=== PATIENT | male | born 1975 | race American Indian/Alaskan Native ===

== ENCOUNTER 2019-05-22 08:25 | Inpatient (IN) | payer OTHER ==
[2019-05-22] MEDS ORDERED: SODIUM CHLORIDE 0.9% 1000 ML IV SOLN IV ONE (08:44)
[2019-05-22] MEDS ORDERED: SODIUM CHLORIDE 0.9% 1000 ML 1,000 ML ONE ×3 (08:46→13:46)
[2019-05-22] MEDS ORDERED: FAMOTIDINE 20 MG/2 ML INJ IV ONE (08:46)
[2019-05-22] MEDS ORDERED: KETOROLAC 30 MG/1 ML INJ IV ONE (08:46)
[2019-05-22] MEDS ORDERED: ONDANSETRON 4 MG/2 ML INJ IV ONE (08:46)
[2019-05-22] MEDS ORDERED: MORPHINE 4 MG/1 ML INJ IV ONE (08:46)
[2019-05-22 09:13] LABS: Basophils # (Auto) 0.1 K/mm3 (0.0-0.1); Basophils % (Auto) 0.8 % (0.0-1.8); Lymphocytes % (Auto) 5.7 % (13.4-35.0); Mean Corpuscular HGB Conc 30 % (32-34); Mean Corpuscular Volume 106 fl (84-94); Monocytes # (Auto) 1.6 K/mm3 (0.0-0.8); Monocytes % (Auto) 9.6 % (0.0-7.3); Platelet Count 242 K/mm3 (140-440)
--- NOTE | 2019-05-22 09:21 | XRay Report ---
CHEST 1 VIEW INDICATION: cough. Difficulty breathing. COMPARISON: None FINDINGS: Support devices: None. Heart: Within normal limits. Lungs/Pleura: No acute air space or interstitial disease. Additional findings: None. IMPRESSION: Normal chest x-ray Signer Name: Nam Maya Jr, MD Signed: 05/22/2019 9:16 AM Workstation Name: [id number]
[2019-05-22 09:28] LABS: Hematocrit 54.1 % (35.5-45.6); Hemoglobin 15.9 gm/dl (11.8-15.2)
[2019-05-22] MEDS ORDERED: DEXTROSE 50% IN WATER (25GM) 50 ML SYRINGE IV PRN ×2 (09:43→20:41)
[2019-05-22 09:48] LABS: Blood Urea Nitrogen TNR mg/dL (9-20)
[2019-05-22 09:49] LABS: BUN/Creatinine Ratio TNR; Calcium TNR mg/dL (8.4-10.2)
--- NOTE | 2019-05-22 09:49 | Emergency Department Report ---
ED General Adult HPI - General Chief complaint: Hyperglycemia Stated complaint: HOLLY/VOMIT Time Seen by Provider: 05/22/19 08:43 Source: patient Mode of arrival: Wheelchair Limitations: No Limitations - History of Present Illness Initial comments: Patient is a 44-year-old Japanese male who is presenting with difficulty breathing. Patient's states that approximately a week ago they both became ill with upper respiratory infection with a cough that is occasionally productive. Patient's states that she started taking some amoxicillin and has completely improved however the patient has worsened. Patient's states that she has has been trying to give the patient her amoxicillin as she stopped her antibiotics early. Patient's is having cough and congestion as well as nausea and vomiting the last 2-3 days. Patient also is complaining of severe lower back pain as well. Patient's had increased thirst and increased urination. Patient denies any diarrhea so throat or neck stiffness. states that starting yesterday evening he started having heavy rapid breathing and she believes that his mentation has changed. She states he will follow commands but seems to sometimes not be paying attention is talking "out of his head". Severity scale (0 -10): 10 - Related Data Allergies Allergy/AdvReac Type Severity Reaction Status Date / Time No Known Allergies Allergy Unverified 05/22/19 08:28 ED Review of Systems ROS: Stated complaint: HOLLY/VOMIT Other details as noted in HPI Comment: All other systems reviewed and negative ED Past Medical Hx - Past Medical History Previous Medical History?: Yes Hx Asthma: Yes - Surgical History Past Surgical History?: No - Social History Smoking Status: Current Every Day Smoker Substance Use Type: Alcohol ED Physical Exam - General Limitations: No Limitations General appearance: alert, anxious, in distress, other (breath smells ofketones) - Head Head exam: Present: atraumatic, normocephalic - Eye Eye exam: Present: normal appearance, PERRL, EOMI - ENT ENT exam: Present: mucous membranes moist - Neck Neck exam: Present: normal inspection - Respiratory Respiratory exam: Present: normal lung sounds bilaterally, respiratory distress, other (tachypnea) - Cardiovascular Cardiovascular Exam: Present: normal rhythm, tachycardia. Absent: systolic murmur, diastolic murmur, rubs, gallop - GI/Abdominal GI/Abdominal exam: Present: soft, normal bowel sounds. Absent: distended, tenderness, guarding, rebound - Rectal Rectal exam: Present: deferred - Extremities Exam Extremities exam: Present: normal inspection - Back Exam Back exam: Present: normal inspection, paraspinal tenderness (lumbar) - Neurological Exam Neurological exam: Present: alert, oriented X3 - Psychiatric Psychiatric exam: Present: normal affect, normal mood - Skin Skin exam: Present: warm, dry, intact, normal color. Absent: rash ED Course Vital Signs 05/22/19 05/22/19 05/22/19 08:31 08:56 09:00 Temperature 97.4 F L Pulse Rate 137 H 129 H 132 H Respiratory 26 H 37 H 32 H Rate Blood Pressure 168/107 172/103 O2 Sat by Pulse 98 Oximetry 05/22/19 05/22/19 05/22/19 09:16 09:30 09:45 Temperature Pulse Rate 120 H 120 H 118 H Respiratory 25 H 26 H 24 Rate Blood Pressure 172/103 151/86 145/102 O2 Sat by Pulse 100 100 100 Oximetry - Reevaluation(s) Reevaluation #1: 05/22/19 11:19 Patient's IV access was lost. Patient is only received 1 L of IV fluids. An 18-gauge external jugular IV was placed in the left EJ. I will also able using ultrasound guidance to place a long 18-gauge in the biceps vein. Patient's mentation is improving at this time. ED Medical Decision Making - Lab Data Result diagrams: 05/22/19 08:55 05/22/19 10:00 Lab Results 05/22/19 05/22/19 05/22/19 Range/Units 08:36 08:55 08:55 WBC 16.9 H (4.5-11.0) K/mm3 RBC 5.10 H (3.65-5.03) M/mm3 Hgb 15.9 H (11.8-15.2) gm/dl Hct 54.1 H (35.5-45.6) % MCV 106 H (84-94) fl MCH 31 (28-32) pg MCHC 30 L (32-34) % RDW 16.0 H (13.2-15.2) % Plt Count 242 (140-440) K/mm3 Lymph % (Auto) 5.7 L (13.4-35.0) % [place] % (Auto) 9.6 H (0.0-7.3) % Eos % (Auto) 0.0 (0.0-4.3) % Baso % (Auto) 0.8 (0.0-1.8) % Lymph # 1.0 L (1.2-5.4) K/mm3 [place] # 1.6 H (0.0-0.8) K/mm3 Eos # 0.0 (0.0-0.4) K/mm3 Baso # 0.1 (0.0-0.1) K/mm3 Seg Neutrophils % 83.9 H (40.0-70.0) % Seg Neutrophils # 14.2 H (1.8-7.7) K/mm3 VBG pH (7.320-7.420) Sodium TNR Potassium TNR Chloride TNR Carbon Dioxide TNR Anion Gap TNR BUN TNR Creatinine TNR Estimated GFR TNR BUN/Creatinine Ratio TNR Glucose TNR POC Glucose > 500 H (70-105) Lactic Acid (0.7-2.0) mmol/L Calcium TNR Phosphorus (2.5-4.5) mg/dL Magnesium (1.7-2.3) mg/dL Total Bilirubin TNR AST TNR ALT TNR Alkaline Phosphatase TNR Total Protein TNR Albumin TNR Albumin/Globulin Ratio TNR Urine Color (Yellow) Urine Turbidity (Clear) Urine pH (5.0-7.0) Ur Specific [place] (1.003-1.030) Urine Protein (Negative) mg/dL Urine Glucose (UA) (Negative) mg/dL Urine Ketones (Negative) mg/dL Urine Blood (Negative) Urine Nitrite (Negative) Urine Bilirubin (Negative) Urine Urobilinogen (<2.0) mg/dL Ur Leukocyte Esterase (Negative) Urine WBC (Auto) (0.0-6.0) /HPF Urine RBC (Auto) (0.0-6.0) /HPF U Epithel Cells (Auto) (0-13.0) /HPF Urine Mucus /HPF 05/22/19 05/22/19 05/22/19 Range/Units 09:23 09:23 10:00 WBC (4.5-11.0) K/mm3 RBC (3.65-5.03) M/mm3 Hgb (11.8-15.2) gm/dl Hct (35.5-45.6) % MCV (84-94) fl MCH (28-32) pg MCHC (32-34) % RDW (13.2-15.2) % Plt Count (140-440) K/mm3 Lymph % (Auto) (13.4-35.0) % [place] % (Auto) (0.0-7.3) % Eos % (Auto) (0.0-4.3) % Baso % (Auto) (0.0-1.8) % Lymph # (1.2-5.4) K/mm3 [place] # (0.0-0.8) K/mm3 Eos # (0.0-0.4) K/mm3 Baso # (0.0-0.1) K/mm3 Seg Neutrophils % (40.0-70.0) % Seg Neutrophils # (1.8-7.7) K/mm3 VBG pH 6.909 L* (7.320-7.420) Sodium Potassium Chloride Carbon Dioxide Anion Gap BUN Creatinine Estimated GFR BUN/Creatinine Ratio Glucose POC Glucose (70-105) Lactic Acid 5.70 H* (0.7-2.0) mmol/L Calcium Phosphorus 8.40 H (2.5-4.5) mg/dL Magnesium 2.90 H (1.7-2.3) mg/dL Total Bilirubin AST ALT Alkaline Phosphatase Total Protein Albumin Albumin/Globulin Ratio Urine Color (Yellow) Urine Turbidity (Clear) Urine pH (5.0-7.0) Ur Specific [place] (1.003-1.030) Urine Protein (Negative) mg/dL Urine Glucose (UA) (Negative) mg/dL Urine Ketones (Negative) mg/dL Urine Blood (Negative) Urine Nitrite (Negative) Urine Bilirubin (Negative) Urine Urobilinogen (<2.0) mg/dL Ur Leukocyte Esterase (Negative) Urine WBC (Auto) (0.0-6.0) /HPF Urine RBC (Auto) (0.0-6.0) /HPF U Epithel Cells (Auto) (0-13.0) /HPF Urine Mucus /HPF 05/22/19 05/22/19 Range/Units 10:00 10:07 WBC (4.5-11.0) K/mm3 RBC (3.65-5.03) M/mm3 Hgb (11.8-15.2) gm/dl Hct (35.5-45.6) % MCV (84-94) fl MCH (28-32) pg MCHC (32-34) % RDW (13.2-15.2) % Plt Count (140-440) K/mm3 Lymph % (Auto) (13.4-35.0) % [place] % (Auto) (0.0-7.3) % Eos % (Auto) (0.0-4.3) % Baso % (Auto) (0.0-1.8) % Lymph # (1.2-5.4) K/mm3 [place] # (0.0-0.8) K/mm3 Eos # (0.0-0.4) K/mm3 Baso # (0.0-0.1) K/mm3 Seg Neutrophils % (40.0-70.0) % Seg Neutrophils # (1.8-7.7) K/mm3 VBG pH (7.320-7.420) Sodium 125 L Potassium 5.5 H Chloride 87.5 L Carbon Dioxide 4 L* Anion Gap 40 BUN 27 H Creatinine 1.7 H Estimated GFR 54 BUN/Creatinine Ratio 16 Glucose > 750 H* POC Glucose (70-105) Lactic Acid (0.7-2.0) mmol/L Calcium 9.1 Phosphorus (2.5-4.5) mg/dL Magnesium (1.7-2.3) mg/dL Total Bilirubin AST ALT Alkaline Phosphatase Total Protein Albumin Albumin/Globulin Ratio Urine Color Yellow (Yellow) Urine Turbidity Clear (Clear) Urine pH 5.0 (5.0-7.0) Ur Specific [place] 1.010 (1.003-1.030) Urine Protein 30 mg/dl (Negative) mg/dL Urine Glucose (UA) 500 (Negative) mg/dL Urine Ketones 25 (Negative) mg/dL Urine Blood Moderate A (Negative) Urine Nitrite Negative (Negative) Urine Bilirubin Negative (Negative) Urine Urobilinogen < 2.0 (<2.0) mg/dL Ur Leukocyte Esterase Negative (Negative) Urine WBC (Auto) < 1.0 (0.0-6.0) /HPF Urine RBC (Auto) 2.0 (0.0-6.0) /HPF U Epithel Cells (Auto) < 1.0 (0-13.0) /HPF Urine Mucus Few /HPF - Radiology Data [facility] [address] [place] [address] XRay Report Signed Patient: ABIGAIL RODRIGUEZ MR#: [id number] [birth year] : 1975 Acct:[id number] Age/Sex: 44 / M ADM Date: 05/22/19 Loc: ED Attending Dr: Ordering Physician: SAMPSON ENRIQUE MD Date of Service: 05/22/19 Procedure(s): XR chest 1V ap Accession Number(s): [id number] cc: SAMPSON ENRIQUE MD Fluoro Time In Minutes: CHEST 1 VIEW INDICATION: cough. Difficulty breathing. COMPARISON: None FINDINGS: Support devices: None. Heart: Within normal limits. Lungs/Pleura: No acute air space or interstitial disease. Additional findings: None. IMPRESSION: Normal chest x-ray Signer Name: Nam Rojo Jr, MD Signed: 05/22/2019 9:16 AM Workstation Name: [id number] Transcribed By: TTR Dictated By: NAM ROJO JR, MD Electronically Authenticated By: NAM ROJO JR, MD Signed Date/Time: 05/22/19 0916 - Medical Decision Making Dishes a 44-year-old -Japanese male with no known past medical history who is resenting in DKA. Patient's a cough and cold symptoms for over a week and is been progressively worsening. White brought him in because he's been having nausea vomiting and decreased mentation with rapid breathing. Patient noted to have a glucose that is greater than 750. At the time of admission the patient is glucose is still being diluted. Patient does show severe acidosis as the patient has a significantly elevated anion gap and has a bicarbonate of 4. Venous pH is 6.9. Patient is aggressively hydrated with normal saline. Patient started on insulin drip. Patient to be admitted to the ICU service. Patient's does state his nausea and low back pain are improved after nausea and pain meds. Patient is continued to have rapid breathing; patient's O2 sat is 100% on 2 L. Patient is not shown any signs of hypoxia. Critical Care Time: Yes (75) Critical care attestation.: If time is entered above; I have spent that time in minutes in the direct care of this critically ill patient, excluding procedure time. ED Disposition Clinical Impression: DKA (diabetic ketoacidoses), New onset type 2 diabetes mellitus, Upper respiratory infection Disposition: -09 OP ADMIT IP TO THIS HOSP Is pt being admited?: Yes Does the pt Need Aspirin: No Condition: Stable Instructions: Diabetic Ketoacidosis (ED), Diabetes Mellitus Type 2 in Adults (ED) Referrals: PRIMARY CARE, [Primary Care Provider] - 3-5 Days Time of Disposition: 11:25
[2019-05-22 09:50] LABS: Alanine Aminotransferase TNR units/L (7-56); Albumin TNR g/dL (3.9-5)
[2019-05-22 09:51] LABS: Hemolysis Index TNR
[2019-05-22] MEDS ORDERED: cefTRIAXone/NS 2 GM/100 ML 2 GM/100 ML BAG IV SCH (10:00)
[2019-05-22] MEDS ORDERED: AZITHROMYCIN 500 MG in SODIUM CHLORIDE 0.9% 250ML 250 ML IV SCH (10:00)
[2019-05-22 10:29] LABS: BUN/Creatinine Ratio 16; Blood Urea Nitrogen 27 mg/dL (9-20); Calcium 9.1 mg/dL (8.4-10.2); Hemolysis Index 50
[2019-05-22] MEDS ORDERED: IPRATROPIUM/ALBUTEROL SULFATE 3 ML AMPUL.NEB IH ONE ×3 (10:56→13:49)
[2019-05-22 11:06] LABS: Bilirubin,Urine Negative (Negative); Blood,Urine Moderate (Negative); Color,Urine Yellow (Yellow)
[2019-05-22 11:07] LABS: Urobilinogen,Urine < 2.0 mg/dL (<2.0)
[2019-05-22 11:11] LABS: Mucus,Urine FEW /HPF; WBC,Urine < 1.0 /HPF (0.0-6.0)
[2019-05-22] MEDS: POTASSIUM CHLORIDE 10 MEQ 10 MEQ/100 ML BAG IV SCH ×6 (11:30→21:14)
[2019-05-22] MEDS: INSULIN REGULAR, HUMAN 100 UNITS in SODIUM CHLORIDE 0.9% 99 ML IV SCH (11:32)
[2019-05-22 11:57] LABS: Albumin 3.9 g/dL (3.9-5); BUN/Creatinine Ratio 18; Blood Urea Nitrogen 27 mg/dL (9-20); Calcium 8.3 mg/dL (8.4-10.2); Hemolysis Index 121
[2019-05-22 12:19] LABS: Alanine Aminotransferase 14 units/L (7-56)
--- NOTE | 2019-05-22 12:24 | Cat Scan Report ---
CT CHEST WITHOUT CONTRAST INDICATION / CLINICAL INFORMATION: severe cough, dehydration cxr wnl. TECHNIQUE: Axial CT images were obtained through the chest without contrast. Sagittal and coronal reformatted im ages. All CT scans at this location are performed using CT dose reduction for ALARA by means of autom ated exposure control. COMPARISON: Chest x-ray performed the same day FINDINGS: This exam is slightly limited by patient motion artifact. The thyroid gland, tracheobronchial tree, e sophagus, heart, pericardium, mediastinal vessels, lung cordero and bony thorax are unremarkable. No e vidence for parenchymal lung disease, pleural effusion or pneumothorax. No thoracic mass, adenopathy or inflammation. IMPRESSION: Unremarkable CT chest without contrast. No abnormality is detected. Signer Name: Nam Maya Jr, MD Signed: 05/22/2019 12:19 PM Workstation Name: [id number]
--- NOTE | 2019-05-22 12:26 | Cat Scan Report ---
CT ABDOMEN AND PELVIS WITHOUT CONTRAST HISTORY: Diabetic ketoacidosis. Abdominal and back pain. COMPARISON: None. TECHNIQUE: Axial CT images were obtained through the abdomen and pelvis without IV contrast. Sagittal and coronal reformatted images. All CT scans at this location are performed using CT dose reduction for ALARA by means of automated exposure control. FINDINGS: Comment: Many of the images are limited secondary to patient motion. CT ABDOMEN: Liver: No significant abnormality. Biliary: No significant abnormality. Spleen: No significant abnormality. Unenlarged. Pancreas: No significant abnormality. Adrenals: No significant abnormality. Kidneys: No significant abnormality. Lymphatics: No lymphadenopathy. Vasculature: No significant abnormality. Bowel/Peritoneum: No significant abnormality. No free air. No free fluid. Normal appendix. CT PELVIS: : No significant abnormality. Osseous Structures: No significant abnormality. No evidence for fracture, bone lesion or significant degenerative changes. Additional Findings: None IMPRESSION: Unremarkable noncontrast CT of the abdomen and pelvis. No abnormality is detected. Signer Name: Nam Maya Jr, MD Signed: 05/22/2019 12:21 PM Workstation Name: [id number]
[2019-05-22 13:38] LABS: BUN/Creatinine Ratio 19; Blood Urea Nitrogen 26 mg/dL (9-20); Calcium 8.9 mg/dL (8.4-10.2); Hemolysis Index 10
[2019-05-22] MEDS: SODIUM CHLORIDE 0.9% 1000 ML 1,000 ML IV SCH ×2 (13:56→18:00)
[2019-05-22 15:05] LABS: BUN/Creatinine Ratio 18; Blood Urea Nitrogen 25 mg/dL (9-20); Calcium 8.5 mg/dL (8.4-10.2); Hemolysis Index 15
[2019-05-22 18:53] LABS: BUN/Creatinine Ratio 16; Blood Urea Nitrogen 22 mg/dL (9-20); Calcium 8.5 mg/dL (8.4-10.2); Hemolysis Index 6
--- NOTE | 2019-05-22 20:35 | History and Physical Report ---
History of Present Illness Date of examination: 05/22/19 Date of admission: 05/22/19 11:26 Chief complaint: Nausea and vomiting for one day History of present illness: 44-year-old [place] male who is presenting with difficulty breathing. Patient had URI for one week for which heis getting Amoxicillin.Since 2 days patient has been breathing heavily.Also confused for one day.Increased urination and increased thirst present.Nausea and vomiting for one day.No diarrhea.Multiple episodes of vomiting since yesterday.No fever. Past Medical History Previous Medical History?: Yes Asthma: Yes Not Known Diabetic Surgical History No Social History Smoking Status: Current Every Day Smoker Substance Use Type: Alcohol Family History Htn Medications and Allergies Allergies Allergy/AdvReac Type Severity Reaction Status Date / Time No Known Allergies Allergy Unverified 05/22/19 08:28 Home Medications Medication Instructions Recorded Confirmed Last Taken Type No Known Home Medications [No 05/22/19 05/22/19 Unknown History Reported Home Medications] Active Meds: Active Medications Dextrose (D50w (25gm) Syringe) 0 ml IV ONCE PRN PRN Reason: Hypoglycemia Ceftriaxone Sodium (Rocephin/Ns 2 Gm/100 Ml) 2 gm in 100 mls @ 200 mls/hr IV Q24HR RUTH; Protocol Last Infusion: 05/22/19 10:30 Dose: Infused Documented by: Azithromycin 500 mg/ Sodium (Chloride) 250 mls @ 250 mls/hr IV Q24HR RUTH; Protocol Last Infusion: 05/22/19 11:30 Dose: Infused Documented by: Insulin Human Regular 100 (units/ Sodium Chloride) 100 mls @ 1 mls/hr IV TITR RUTH; Protocol Last Titration: 05/22/19 19:00 Dose: 6 units/hr, 6 mls/hr Documented by: Sodium Chloride (Nacl 0.9% 1000 Ml) 1,000 mls @ 250 mls/hr IV DIRECT RUTH Last Admin: 05/22/19 18:00 Dose: 250 mls/hr Documented by: Potassium Chloride/Dextrose/Sod Cl (D5w/0.45% Nacl/Kcl 20 Meq) 20 meq in 1,000 mls @ 125 mls/hr IV DIRECT RUTH Review of Systems All systems: negative Constitutional: weight loss, daytime sleepiness Ears, nose, mouth and throat: no ear pain, no ear discharge, no tinnitis, no decreased hearing Cardiovascular: shortness of breath, no chest pain, no orthopnea Respiratory: cough, cough with sputum, shortness of breath, dyspnea on exertion, congestion Gastrointestinal: nausea, vomiting, no abdominal pain Genitourinary Male: urinary frequency (Increased), no dysuria, no hematuria, no flank pain, no discharge Rectal: no pain Musculoskeletal: no neck stiffness, no neck pain, no shooting arm pain, no arm numbness/tingling, no low back pain, no shooting leg pain, no leg numbness/tingling, no redness of joints Integumentary: no rash, no pruritis, no redness, no sores, no wounds, no jaundice, no boils, no blisters Neurological: no seizures, no syncope Psychiatric: anxiety, disorientation Endocrine: polyphagia, excessive thirst, polydipsia, polyuria, weight change, high blood sugars Hematologic/Lymphatic: no easy bruising, no easy bleeding Allergic/Immunologic: no urticaria, no allergic rhinitis, no wheezing Exam - Constitutional Vitals: Temp Pulse Resp BP Pulse Ox 97.4 F L 116 H 19 125/87 99 05/22/19 08:31 05/22/19 19:21 05/22/19 19:21 05/22/19 19:21 05/22/19 19:21 General appearance: Present: severe distress, well-nourished - EENT Eyes: Present: PERRL ENT: hearing intact, clear oral mucosa - Neck Neck: Present: supple, normal ROM - Respiratory Respiratory effort: normal Respiratory: bilateral: CTA, rhonchi - Cardiovascular Heart rate: 98 Rhythm: regular Heart Sounds: Present: S1 & S2. Absent: rub, click - Extremities Extremities: no ischemia, pulses intact, pulses symmetrical, No edema Peripheral Pulses: within normal limits - Abdominal General gastrointestinal: Present: soft, non-tender, non-distended, normal bowel sounds Male genitourinary: Present: normal - Rectal Rectal Exam: deferred - Integumentary Integumentary: Present: clear, warm, dry - Musculoskeletal Musculoskeletal: strength equal bilaterally, generalized weakness - Psychiatric Psychiatric: agitated, other (Altered sensoriuum) - Neurologic Neurologic: CNII-XII intact, moves all extremities Results - Labs CBC & Chem 7: 05/22/19 08:55 05/22/19 23:00 Labs: Laboratory Last Values WBC 16.9 K/mm3 (4.5-11.0) H 05/22/19 08:55 RBC 5.10 M/mm3 (3.65-5.03) H 05/22/19 08:55 Hgb 15.9 gm/dl (11.8-15.2) H 05/22/19 08:55 Hct 54.1 % (35.5-45.6) H 05/22/19 08:55 MCV 106 fl (84-94) H 05/22/19 08:55 MCH 31 pg (28-32) 05/22/19 08:55 MCHC 30 % (32-34) L 05/22/19 08:55 RDW 16.0 % (13.2-15.2) H 05/22/19 08:55 Plt Count 242 K/mm3 (140-440) 05/22/19 08:55 Lymph % (Auto) 5.7 % (13.4-35.0) L 05/22/19 08:55 [place] % (Auto) 9.6 % (0.0-7.3) H 05/22/19 08:55 Eos % (Auto) 0.0 % (0.0-4.3) 05/22/19 08:55 Baso % (Auto) 0.8 % (0.0-1.8) 05/22/19 08:55 Lymph # 1.0 K/mm3 (1.2-5.4) L 05/22/19 08:55 [place] # 1.6 K/mm3 (0.0-0.8) H 05/22/19 08:55 Eos # 0.0 K/mm3 (0.0-0.4) 05/22/19 08:55 Baso # 0.1 K/mm3 (0.0-0.1) 05/22/19 08:55 Seg Neutrophils % 83.9 % (40.0-70.0) H 05/22/19 08:55 Seg Neutrophils # 14.2 K/mm3 (1.8-7.7) H 05/22/19 08:55 VBG pH 6.909 (7.320-7.420) L* 05/22/19 09:23 Sodium 137 mmol/L (137-145) 05/22/19 18:24 Potassium 3.9 mmol/L (3.6-5.0) 05/22/19 18:24 Chloride 105.7 mmol/L (98-107) 05/22/19 18:24 Carbon Dioxide 7 mmol/L (22-30) L* 05/22/19 18:24 Anion Gap 28 mmol/L 05/22/19 18:24 BUN 22 mg/dL (9-20) H 05/22/19 18:24 Creatinine 1.4 mg/dL (0.8-1.5) 05/22/19 18:24 Estimated GFR > 60 ml/min 05/22/19 18:24 BUN/Creatinine Ratio 16 % 05/22/19 18:24 Glucose 323 mg/dL (75-100) H 05/22/19 18:24 Glucose 326 mg/dL (75-100) H 05/22/19 18:24 POC Glucose 246 (70-105) H 05/22/19 20:19 Lactic Acid 3.80 mmol/L (0.7-2.0) H* 05/22/19 Unknown Calcium 8.5 mg/dL (8.4-10.2) 05/22/19 18:24 Phosphorus 8.40 mg/dL (2.5-4.5) H 05/22/19 10:00 Magnesium 2.90 mg/dL (1.7-2.3) H 05/22/19 10:00 Total Bilirubin < 0.20 mg/dL (0.1-1.2) 05/22/19 11:19 AST 14 units/L (5-40) 05/22/19 11: ALT 14 units/L (7-56) 05/22/19 11:19 Alkaline Phosphatase 95 units/L (35-129) 05/22/19 11:19 Total Protein 7.6 g/dL (6.3-8.2) 05/22/19 11: Albumin 3.9 g/dL (3.9-5) 05/22/19 11:19 Albumin/Globulin Ratio 1.1 % 05/22/19 11:19 Urine Color Yellow (Yellow) 05/22/19 10:07 Urine Turbidity Clear (Clear) 05/22/19 10:07 Urine pH 5.0 (5.0-7.0) 05/22/19 10:07 Ur Specific [place] 1.010 (1.003-1.030) 05/22/19 10:07 Urine Protein 30 mg/dl mg/dL (Negative) 05/22/19 10:07 Urine Glucose (UA) 500 mg/dL (Negative) 05/22/19 10:07 Urine Ketones 25 mg/dL (Negative) 05/22/19 10:07 Urine Blood Moderate (Negative) A 05/22/19 10:07 Urine Nitrite Negative (Negative) 05/22/19 10:07 Urine Bilirubin Negative (Negative) 05/22/19 10:07 Urine Urobilinogen < 2.0 mg/dL (<2.0) 05/22/19 10:07 Ur Leukocyte Esterase Negative (Negative) 05/22/19 10:07 Urine WBC (Auto) < 1.0 /HPF (0.0-6.0) 05/22/19 10:07 Urine RBC (Auto) 2.0 /HPF (0.0-6.0) 05/22/19 10:07 U Epithel Cells (Auto) < 1.0 /HPF (0-13.0) 05/22/19 10:07 Urine Mucus Few /HPF 05/22/19 10:07 Short CBC 05/22/19 Range/Units 08:55 WBC 16.9 H (4.5-11.0) K/mm3 Hgb 15.9 H (11.8-15.2) gm/dl Hct 54.1 H (35.5-45.6) % Plt Count 242 (140-440) K/mm3 BMP 05/22/19 05/22/19 05/22/19 08:55 10:00 11:19 Sodium TNR 125 L 128 L Potassium TNR 5.5 H 5.9 H Chloride TNR 87.5 L 93.1 L Carbon Dioxide TNR 4 L* 3 L* BUN TNR 27 H 27 H Creatinine TNR 1.7 H 1.5 Glucose TNR > 750 H* > 750 H* Calcium TNR 9.1 8.3 L 05/22/19 05/22/19 05/22/19 13:09 14:30 18:24 Sodium 130 L 134 L 137 Potassium 5.4 H 4.5 3.9 Chloride 92.6 L 99.2 105.7 Carbon Dioxide 4 L* 5 L* 7 L* BUN 26 H 25 H 22 H Creatinine 1.4 1.4 1.4 Glucose > 750 H* 715 H* 323 H Calcium 8.9 8.5 8.5 05/22/19 05/22/19 18:24 23:00 Sodium 139 Potassium 4.3 Chloride 108.5 H Carbon Dioxide 6 L* BUN 17 Creatinine 1.0 Glucose 326 H 248 H Calcium 8.6 Liver Function 05/22/19 05/22/19 Range/Units 08:55 11:19 Total Bilirubin TNR < 0.20 AST TNR 14 ALT TNR 14 Alkaline Phosphatase TNR 95 Albumin TNR 3.9 Urine 05/22/19 Range/Units 10:07 Urine Color Yellow (Yellow) Urine pH 5.0 (5.0-7.0) Ur Specific [place] 1.010 (1.003-1.030) Urine Protein 30 mg/dl (Negative) mg/dL Urine Glucose (UA) 500 (Negative) mg/dL - Imaging and Cardiology EKG: report reviewed Chest x-ray: report reviewed (NAF) CT scan - abdomen: report reviewed (NAF) CT scan - chest: report reviewed (NAF) Assessment and Plan Assessment and plan: Critical care time 40 minutes Advance Directives: Yes (Full code) VTE prophylaxis?: Chemical Plan of care discussed with patient/family: Yes - Patient Problems (1) Hyperosmolar non-ketotic state in patient with type 2 diabetes mellitus Current Visit: Yes Status: Acute Plan to address problem: DKA protocol New onset Diabetes Hba1c 13.3 Diabetes education Bolus /Basal regimen or Novalog mix BID--will defer to primary team. Ketones only 25 in urine (2) SIRS (systemic inflammatory response syndrome) Current Visit: Yes Status: Acute Plan to address problem: patient has leukocytosis elevated Lactic acid levels. Empiric abx with Cefepime for now (3) Metabolic acidosis due to diabetes mellitus Current Visit: Yes Status: Acute Plan to address problem: Seconad[place] to Hyperosmolar state Correct BG levels IV NS for now. (4) Hyponatremia Current Visit: Yes Status: Acute Plan to address problem: Should correct with correction of BG levels (5) Hyperkalemia Current Visit: Yes Status: Acute Plan to address problem: Should correct with BG levels improving. (6) DVT prophylaxis Current Visit: Yes Status: Acute Plan to address problem: On Lovenox and GI prophylaxis
[2019-05-22] MEDS ORDERED: METOCLOPRAMIDE 10 MG/2 ML INJ IV PRN (20:36)
[2019-05-22] MEDS ORDERED: PROMETHAZINE 25 MG RECT SUPP PR PRN (20:36)
[2019-05-22] MEDS ORDERED: INSULIN REGULAR, HUMAN 100 UNITS in SODIUM CHLORIDE 0.9% 99 ML IV SCH (21:00)
[2019-05-22] MEDS ORDERED: POTASSIUM CHLORIDE 10 MEQ 10 MEQ/100 ML BAG IV SCH (21:00)
[2019-05-22] MEDS: ENOXAPARIN 40 MG/0.4 ML INJ SUB-Q SCH (21:10)
[2019-05-22] MEDS: D5W/0.45% NACL/KCL 20 MEQ 20 MEQ/1,000 ML BAG IV SCH (21:10)
[2019-05-22] MEDS: HYDROmorphone 1 MG/1 ML INJ IV PRN (21:11)
[2019-05-22] MEDS: FAMOTIDINE 20 MG/2 ML INJ IV SCH (21:11)
[2019-05-22] MEDS ORDERED: CEFEPIME/NS 2 GM/100 ML 2 GM/100 ML BAG IV SCH (22:00)
[2019-05-22 23:43] LABS: BUN/Creatinine Ratio 17; Blood Urea Nitrogen 17 mg/dL (9-20); Calcium 8.6 mg/dL (8.4-10.2); Hemolysis Index 47
[2019-05-23] MEDS: HYDROmorphone 1 MG/1 ML INJ IV PRN (01:50)
[2019-05-23] MEDS: INSULIN REGULAR, HUMAN 100 UNITS in SODIUM CHLORIDE 0.9% 99 ML IV SCH ×2 (03:34→21:41)
[2019-05-23] MEDS: D5W/0.45% NACL/KCL 20 MEQ 20 MEQ/1,000 ML BAG IV SCH (07:36)
[2019-05-23] MEDS: POTASSIUM CHLORIDE 10 MEQ 10 MEQ/100 ML BAG IV SCH (07:37)
--- NOTE | 2019-05-23 08:25 | Consultation ---
History of Present Illness - Reason for Consult Consult date: 05/23/19 DKA Requesting physician: DEVENDRA CANO - History of Present Illness 44 y/o male with no prior medical history admitted with nausea vomiting, lower back pain and increase thirst and urination. Blood sugar found to be 750 with elevated anion Gap and bicarb of 4. Started on IVF's and insulin drip and transitioned to the unit. Past History Past Medical History: No medical history Medications and Allergies Allergies Allergy/AdvReac Type Severity Reaction Status Date / Time No Known Allergies Allergy Unverified 05/22/19 08:28 Home Medications Medication Instructions Recorded Confirmed Last Taken Type No Known Home Medications [No 05/22/19 05/22/19 Unknown History Reported Home Medications] Active Meds: Active Medications Dextrose (D50w (25gm) Syringe) 0 ml IV ONCE PRN PRN Reason: Hypoglycemia Dextrose (D50w (25gm) Syringe) 0 ml IV Q30MIN PRN PRN Reason: Hypoglycemia Enoxaparin Sodium (Enoxaparin) 40 mg SUB-Q QDAY@2200 URTH Last Admin: 05/22/19 21:10 Dose: 40 mg Documented by: Famotidine (Pepcid) 20 mg IV BID RUTH Last Admin: 05/22/19 21:11 Dose: 20 mg Documented by: Hydromorphone HCl (Dilaudid) 0.5 mg IV Q3H PRN PRN Reason: Pain , Severe (7-10) Last Admin: 05/23/19 01:50 Dose: 0.5 mg Documented by: Ceftriaxone Sodium (Rocephin/Ns 2 Gm/100 Ml) 2 gm in 100 mls @ 200 mls/hr IV Q24HR RUTH; Protocol Last Infusion: 05/22/19 10:30 Dose: Infused Documented by: Azithromycin 500 mg/ Sodium (Chloride) 250 mls @ 250 mls/hr IV Q24HR RUTH; Protocol Last Infusion: 05/22/19 11:30 Dose: Infused Documented by: Insulin Human Regular 100 (units/ Sodium Chloride) 100 mls @ 1 mls/hr IV TITR RUTH; Protocol Last Titration: 05/23/19 07:18 Dose: 9 units/hr, 9 mls/hr Documented by: Sodium Chloride (Nacl 0.9% 1000 Ml) 1,000 mls @ 250 mls/hr IV DIRECT RUTH Last Admin: 05/22/19 18:00 Dose: 250 mls/hr Documented by: Potassium Chloride/Dextrose/Sod Cl (D5w/0.45% Nacl/Kcl 20 Meq) 20 meq in 1,000 mls @ 125 mls/hr IV DIRECT RUTH Last Admin: 05/23/19 07:36 Dose: 125 mls/hr Documented by: Cefepime HCl (Cefepime/Ns 2 Gm/100 Ml) 2 gm in 100 mls @ 200 mls/hr IV Q12HR RUTH; Protocol Last Admin: 05/22/19 21:11 Dose: 200 mls/hr Documented by: Metoclopramide HCl (Reglan) 10 mg IV Q6H PRN PRN Reason: Nausea And Vomiting Oxycodone/Acetaminophen (Percocet 5/325) 1 tab PO Q6H PRN PRN Reason: Pain, Moderate (4-6) Promethazine HCl (Phenergan) 25 mg MN Q6H PRN PRN Reason: N/V IF NPO AND NO IV ACCESS Sodium Chloride (Sodium Chloride Flush Syringe 10 Ml) 10 ml IV BID RUTH Last Admin: 05/22/19 22:00 Dose: 10 ml Documented by: Sodium Chloride (Sodium Chloride Flush Syringe 10 Ml) 10 ml IV PRN PRN PRN Reason: LINE FLUSH Review of Systems Respiratory: congestion Genitourinary Male: urinary frequency Musculoskeletal: low back pain Endocrine: excessive thirst, polydipsia, polyuria Exam - Constitutional Vitals: Temp Pulse Resp BP Pulse Ox 98.2 F 108 H 17 137/83 99 05/23/19 04:00 05/23/19 07:41 05/23/19 07:41 05/23/19 07:41 05/23/19 07:41 Results - Labs CBC & Chem 7: 05/22/19 08:55 05/22/19 23:00 Labs: Abnormal lab results 05/22/19 05/22/19 05/22/19 Range/Units 08:36 08:55 09:23 WBC 16.9 H (4.5-11.0) K/mm3 RBC 5.10 H (3.65-5.03) M/mm3 Hgb 15.9 H (11.8-15.2) gm/dl Hct 54.1 H (35.5-45.6) % MCV 106 H (84-94) fl MCHC 30 L (32-34) % RDW 16.0 H (13.2-15.2) % Lymph % (Auto) 5.7 L (13.4-35.0) % [place] % (Auto) 9.6 H (0.0-7.3) % Lymph # 1.0 L (1.2-5.4) K/mm3 [place] # 1.6 H (0.0-0.8) K/mm3 Seg Neutrophils % 83.9 H (40.0-70.0) % Seg Neutrophils # 14.2 H (1.8-7.7) K/mm3 VBG pH (7.320-7.420) Sodium (137-145) mmol/L Potassium (3.6-5.0) mmol/L Chloride (98-107) mmol/L Carbon Dioxide (22-30) mmol/L BUN (9-20) mg/dL Creatinine (0.8-1.5) mg/dL Glucose (75-100) mg/dL POC Glucose > 500 H (70-105) Hemoglobin A1c (4-6) % Lactic Acid 5.70 H* (0.7-2.0) mmol/L Calcium (8.4-10.2) mg/dL Phosphorus (2.5-4.5) mg/dL Magnesium (1.7-2.3) mg/dL Urine Blood (Negative) 05/22/19 05/22/19 05/22/19 Range/Units 09:23 10:00 10:00 WBC (4.5-11.0) K/mm3 RBC (3.65-5.03) M/mm3 Hgb (11.8-15.2) gm/dl Hct (35.5-45.6) % MCV (84-94) fl MCHC (32-34) % RDW (13.2-15.2) % Lymph % (Auto) (13.4-35.0) % [place] % (Auto) (0.0-7.3) % Lymph # (1.2-5.4) K/mm3 [place] # (0.0-0.8) K/mm3 Seg Neutrophils % (40.0-70.0) % Seg Neutrophils # (1.8-7.7) K/mm3 VBG pH 6.909 L* (7.320-7.420) Sodium 125 L (137-145) mmol/L Potassium 5.5 H (3.6-5.0) mmol/L Chloride 87.5 L (98-107) mmol/L Carbon Dioxide 4 L* (22-30) mmol/L BUN 27 H (9-20) mg/dL Creatinine 1.7 H (0.8-1.5) mg/dL Glucose > 750 H* (75-100) mg/dL POC Glucose (70-105) Hemoglobin A1c (4-6) % Lactic Acid (0.7-2.0) mmol/L Calcium (8.4-10.2) mg/dL Phosphorus 8.40 H (2.5-4.5) mg/dL Magnesium 2.90 H (1.7-2.3) mg/dL Urine Blood (Negative) 05/22/19 05/22/19 05/22/19 Range/Units 10:07 11:19 11:19 WBC (4.5-11.0) K/mm3 RBC (3.65-5.03) M/mm3 Hgb (11.8-15.2) gm/dl Hct (35.5-45.6) % MCV (84-94) fl MCHC (32-34) % RDW (13.2-15.2) % Lymph % (Auto) (13.4-35.0) % [place] % (Auto) (0.0-7.3) % Lymph # (1.2-5.4) K/mm3 [place] # (0.0-0.8) K/mm3 Seg Neutrophils % (40.0-70.0) % Seg Neutrophils # (1.8-7.7) K/mm3 VBG pH (7.320-7.420) Sodium 128 L (137-145) mmol/L Potassium 5.9 H (3.6-5.0) mmol/L Chloride 93.1 L (98-107) mmol/L Carbon Dioxide 3 L* (22-30) mmol/L BUN 27 H (9-20) mg/dL Creatinine (0.8-1.5) mg/dL Glucose > 750 H* (75-100) mg/dL POC Glucose (70-105) Hemoglobin A1c (4-6) % Lactic Acid 3.50 H* (0.7-2.0) mmol/L Calcium 8.3 L (8.4-10.2) mg/dL Phosphorus (2.5-4.5) mg/dL Magnesium (1.7-2.3) mg/dL Urine Blood Moderate A (Negative) 05/22/19 05/22/19 05/22/19 Range/Units 13:09 14:30 14:30 WBC (4.5-11.0) K/mm3 RBC (3.65-5.03) M/mm3 Hgb (11.8-15.2) gm/dl Hct (35.5-45.6) % MCV (84-94) fl MCHC (32-34) % RDW (13.2-15.2) % Lymph % (Auto) (13.4-35.0) % [place] % (Auto) (0.0-7.3) % Lymph # (1.2-5.4) K/mm3 [place] # (0.0-0.8) K/mm3 Seg Neutrophils % (40.0-70.0) % Seg Neutrophils # (1.8-7.7) K/mm3 VBG pH (7.320-7.420) Sodium 130 L 134 L (137-145) mmol/L Potassium 5.4 H (3.6-5.0) mmol/L Chloride 92.6 L (98-107) mmol/L Carbon Dioxide 4 L* 5 L* (22-30) mmol/L BUN 26 H 25 H (9-20) mg/dL Creatinine (0.8-1.5) mg/dL Glucose > 750 H* 715 H* (75-100) mg/dL POC Glucose (70-105) Hemoglobin A1c (4-6) % Lactic Acid 2.50 H* (0.7-2.0) mmol/L Calcium (8.4-10.2) mg/dL Phosphorus (2.5-4.5) mg/dL Magnesium (1.7-2.3) mg/dL Urine Blood (Negative) 05/22/19 05/22/19 05/22/19 Range/Units 18:24 18:24 20:19 WBC (4.5-11.0) K/mm3 RBC (3.65-5.03) M/mm3 Hgb (11.8-15.2) gm/dl Hct (35.5-45.6) % MCV (84-94) fl MCHC (32-34) % RDW (13.2-15.2) % Lymph % (Auto) (13.4-35.0) % [place] % (Auto) (0.0-7.3) % Lymph # (1.2-5.4) K/mm3 [place] # (0.0-0.8) K/mm3 Seg Neutrophils % (40.0-70.0) % Seg Neutrophils # (1.8-7.7) K/mm3 VBG pH (7.320-7.420) Sodium (137-145) mmol/L Potassium (3.6-5.0) mmol/L Chloride (98-107) mmol/L Carbon Dioxide 7 L* (22-30) mmol/L BUN 22 H (9-20) mg/dL Creatinine (0.8-1.5) mg/dL Glucose 323 H 326 H (75-100) mg/dL POC Glucose 246 H (70-105) Hemoglobin A1c (4-6) % Lactic Acid (0.7-2.0) mmol/L Calcium (8.4-10.2) mg/dL Phosphorus (2.5-4.5) mg/dL Magnesium (1.7-2.3) mg/dL Urine Blood (Negative) 05/22/19 05/22/19 05/22/19 Range/Units 22:02 23:00 23:00 WBC (4.5-11.0) K/mm3 RBC (3.65-5.03) M/mm3 Hgb (11.8-15.2) gm/dl Hct (35.5-45.6) % MCV (84-94) fl MCHC (32-34) % RDW (13.2-15.2) % Lymph % (Auto) (13.4-35.0) % [place] % (Auto) (0.0-7.3) % Lymph # (1.2-5.4) K/mm3 [place] # (0.0-0.8) K/mm3 Seg Neutrophils % (40.0-70.0) % Seg Neutrophils # (1.8-7.7) K/mm3 VBG pH (7.320-7.420) Sodium (137-145) mmol/L Potassium (3.6-5.0) mmol/L Chloride (98-107) mmol/L Carbon Dioxide (22-30) mmol/L BUN (9-20) mg/dL Creatinine (0.8-1.5) mg/dL Glucose (75-100) mg/dL POC Glucose 276 H (70-105) Hemoglobin A1c 13.3 H (4-6) % Lactic Acid (0.7-2.0) mmol/L Calcium (8.4-10.2) mg/dL Phosphorus 1.30 L D (2.5-4.5) mg/dL Magnesium (1.7-2.3) mg/dL Urine Blood (Negative) 05/22/19 05/22/19 05/22/19 Range/Units 23:00 23:09 Unknown WBC (4.5-11.0) K/mm3 RBC (3.65-5.03) M/mm3 Hgb (11.8-15.2) gm/dl Hct (35.5-45.6) % MCV (84-94) fl MCHC (32-34) % RDW (13.2-15.2) % Lymph % (Auto) (13.4-35.0) % [place] % (Auto) (0.0-7.3) % Lymph # (1.2-5.4) K/mm3 [place] # (0.0-0.8) K/mm3 Seg Neutrophils % (40.0-70.0) % Seg Neutrophils # (1.8-7.7) K/mm3 VBG pH (7.320-7.420) Sodium (137-145) mmol/L Potassium (3.6-5.0) mmol/L Chloride 108.5 H (98-107) mmol/L Carbon Dioxide 6 L* (22-30) mmol/L BUN (9-20) mg/dL Creatinine (0.8-1.5) mg/dL Glucose 248 H (75-100) mg/dL POC Glucose 282 H (70-105) Hemoglobin A1c (4-6) % Lactic Acid 3.80 H* (0.7-2.0) mmol/L Calcium (8.4-10.2) mg/dL Phosphorus (2.5-4.5) mg/dL Magnesium (1.7-2.3) mg/dL Urine Blood (Negative) 05/23/19 05/23/19 05/23/19 Range/Units 00:02 00:59 02:01 WBC (4.5-11.0) K/mm3 RBC (3.65-5.03) M/mm3 Hgb (11.8-15.2) gm/dl Hct (35.5-45.6) % MCV (84-94) fl MCHC (32-34) % RDW (13.2-15.2) % Lymph % (Auto) (13.4-35.0) % [place] % (Auto) (0.0-7.3) % Lymph # (1.2-5.4) K/mm3 [place] # (0.0-0.8) K/mm3 Seg Neutrophils % (40.0-70.0) % Seg Neutrophils # (1.8-7.7) K/mm3 VBG pH (7.320-7.420) Sodium (137-145) mmol/L Potassium (3.6-5.0) mmol/L Chloride (98-107) mmol/L Carbon Dioxide (22-30) mmol/L BUN (9-20) mg/dL Creatinine (0.8-1.5) mg/dL Glucose (75-100) mg/dL POC Glucose 236 H 251 H 234 H (70-105) Hemoglobin A1c (4-6) % Lactic Acid (0.7-2.0) mmol/L Calcium (8.4-10.2) mg/dL Phosphorus (2.5-4.5) mg/dL Magnesium (1.7-2.3) mg/dL Urine Blood (Negative) 05/23/19 05/23/19 05/23/19 Range/Units 05:48 06:11 07:24 WBC (4.5-11.0) K/mm3 RBC (3.65-5.03) M/mm3 Hgb (11.8-15.2) gm/dl Hct (35.5-45.6) % MCV (84-94) fl MCHC (32-34) % RDW (13.2-15.2) % Lymph % (Auto) (13.4-35.0) % [place] % (Auto) (0.0-7.3) % Lymph # (1.2-5.4) K/mm3 [place] # (0.0-0.8) K/mm3 Seg Neutrophils % (40.0-70.0) % Seg Neutrophils # (1.8-7.7) K/mm3 VBG pH (7.320-7.420) Sodium (137-145) mmol/L Potassium (3.6-5.0) mmol/L Chloride (98-107) mmol/L Carbon Dioxide (22-30) mmol/L BUN (9-20) mg/dL Creatinine (0.8-1.5) mg/dL Glucose (75-100) mg/dL POC Glucose 280 H 283 H 335 H (70-105) Hemoglobin A1c (4-6) % Lactic Acid (0.7-2.0) mmol/L Calcium (8.4-10.2) mg/dL Phosphorus (2.5-4.5) mg/dL Magnesium (1.7-2.3) mg/dL Urine Blood (Negative) - Imaging and Cardiology CT scan - chest: report reviewed Assessment and Plan 44 y/o male with newly diagnosed diabetes (A1c 13) admitted with DKA 1. Continue Insulin drip until Anion Gap Closes 2. Stopped D5W with K and placed back on normal saline as patient sugar was in the 300's this am 3. Stopped all abx therapy, unsure exactly of what was being treated 4. Discontinued some of the pain control options 5. Continue NPO status 6. needs BP control suggest starting with MAYTE inhibitor given his diabetes. Will likely need more than one agent 7. Guarded prognosis CCT 31 minute
[2019-05-23] MEDS: FAMOTIDINE 20 MG/2 ML INJ IV SCH ×2 (10:53→21:36)
[2019-05-23 11:06] LABS: Basophils # (Auto) 0.1 K/mm3 (0.0-0.1); Basophils % (Auto) 0.7 % (0.0-1.8); Eosinophils % (Auto) 0.3 % (0.0-4.3); Hematocrit 42.6 % (35.5-45.6); Hemoglobin 14.7 gm/dl (11.8-15.2); Lymphocytes # (Auto) 1.2 K/mm3 (1.2-5.4); Lymphocytes % (Auto) 11.8 % (13.4-35.0); Mean Corpuscular HGB Conc 35 % (32-34); Mean Corpuscular Volume 92 fl (84-94); Monocytes % (Auto) 10.2 % (0.0-7.3); Platelet Count 164 K/mm3 (140-440); Red Blood Count 4.64 M/mm3 (3.65-5.03); Red Cell Distribution Width 13.5 % (13.2-15.2)
[2019-05-23 11:33] LABS: BUN/Creatinine Ratio 11; Blood Urea Nitrogen 12 mg/dL (9-20); Calcium 9.4 mg/dL (8.4-10.2); Hemolysis Index 21
[2019-05-23] MEDS ORDERED: D5W/0.45% NACL/KCL 20 MEQ 20 MEQ/1,000 ML BAG IV SCH (12:00)
[2019-05-23 14:32] LABS: BUN/Creatinine Ratio 10; Blood Urea Nitrogen 10 mg/dL (9-20); Calcium 9.1 mg/dL (8.4-10.2); Hemolysis Index 4
--- NOTE | 2019-05-23 15:13 | Progress Note ---
Assessment and Plan Assessment and plan: (1) DKA - Continue management ordered into DKA protocol Acute metabolic acidosis - continue managing underlying condition - Patient is lethargic (2) SIRS (systemic inflammatory response syndrome) - DC antibiotics - No source of infection identified (3) Metabolic acidosis due to diabetes mellitus - IV fluids - Continue the care management (4) Hyponatremia - Continue IV fluids (5) Hyperkalemia - Continue managing hyperkalemia according to the Protocol (6) DVT prophylaxis On Lovenox and GI prophylaxis Disposition; Continue ICU care. History Interval history: Patient was seen and evaluated this morning, patient was confused dehydrated. Discussed the management plan with his . Hospitalist Physical - Physical exam Narrative exam: Not in cardiopulmonary distress. The patient appeared well nourished and normally developed. Vital signs as documented. Head exam is unremarkable. No scleral icterus . Neck is without jugular venous distension, thyromegaly, or carotid bruits. Lungs are clear to auscultation. Cardiac exam reveals regular rate and Rhythm. First and second heart sounds normal. No murmurs, rubs or gallops. Abdominal exam reveals normal bowel sounds, no masses, no organomegaly and no aortic enlargement. Extremities are nonedematous and both femoral and pedal pulses are normal. 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 - Constitutional Vitals: Temp Pulse Resp BP Pulse Ox 99.5 F 105 H 14 103/76 99 05/23/19 12:00 05/23/19 14:00 05/23/19 14:00 05/23/19 14:00 05/23/19 14:00 General appearance: Present: severe distress, well-nourished Results - Labs CBC & Chem 7: 05/23/19 10:55 05/23/19 13:30 Labs: Laboratory Last Values WBC 10.0 K/mm3 (4.5-11.0) 05/23/19 10:55 RBC 4.64 M/mm3 (3.65-5.03) 05/23/19 10:55 Hgb 14.7 gm/dl (11.8-15.2) 05/23/19 10:55 Hct 42.6 % (35.5-45.6) D 05/23/19 10:55 MCV 92 fl (84-94) 05/23/19 10:55 MCH 32 pg (28-32) 05/23/19 10:55 MCHC 35 % (32-34) H 05/23/19 10:55 RDW 13.5 % (13.2-15.2) 05/23/19 10:55 Plt Count 164 K/mm3 (140-440) 05/23/19 10:55 Lymph % (Auto) 11.8 % (13.4-35.0) L 05/23/19 10:55 [place] % (Auto) 10.2 % (0.0-7.3) H 05/23/19 10:55 Eos % (Auto) 0.3 % (0.0-4.3) 05/23/19 10:55 Baso % (Auto) 0.7 % (0.0-1.8) 05/23/19 10:55 Lymph # 1.2 K/mm3 (1.2-5.4) 05/23/19 10:55 [place] # 1.0 K/mm3 (0.0-0.8) H 05/23/19 10:55 Eos # 0.0 K/mm3 (0.0-0.4) 05/23/19 10:55 Baso # 0.1 K/mm3 (0.0-0.1) 05/23/19 10:55 Seg Neutrophils % 77.0 % (40.0-70.0) H 05/23/19 10:55 Seg Neutrophils # 7.7 K/mm3 (1.8-7.7) 05/23/19 10:55 VBG pH 6.909 (7.320-7.420) L* 05/22/19 09:23 Sodium 140 mmol/L (137-145) 05/23/19 13:30 Potassium 3.2 mmol/L (3.6-5.0) L 05/23/19 13:30 Chloride 111.6 mmol/L (98-107) H 05/23/19 13:30 Carbon Dioxide 12 mmol/L (22-30) L 05/23/19 13:30 Anion Gap 20 mmol/L 05/23/19 13:30 BUN 10 mg/dL (9-20) 05/23/19 13:30 Creatinine 1.0 mg/dL (0.8-1.5) 05/23/19 13:30 Estimated GFR > 60 ml/min 05/23/19 13:30 BUN/Creatinine Ratio 10 % 05/23/19 13:30 Glucose 159 mg/dL (75-100) H 05/23/19 13:30 POC Glucose 124 (70-105) H 05/23/19 14:44 Hemoglobin A1c 13.3 % (4-6) H 05/22/19 23:00 Lactic Acid 3.80 mmol/L (0.7-2.0) H* 05/22/19 Unknown Calcium 9.1 mg/dL (8.4-10.2) 05/23/19 13:30 Phosphorus 1.30 mg/dL (2.5-4.5) L D 05/22/19 23:00 Magnesium 2.30 mg/dL (1.7-2.3) 05/22/19 23:00 Total Bilirubin < 0.20 mg/dL (0.1-1.2) 05/22/19 11:19 AST 14 units/L (5-40) 05/22/19 11:19 ALT 14 units/L (7-56) 05/22/19 11:19 Alkaline Phosphatase 95 units/L (35-129) 05/22/19 11:19 Total Protein 7.6 g/dL (6.3-8.2) 05/22/19 11:19 Albumin 3.9 g/dL (3.9-5) 05/22/19 11:19 Albumin/Globulin Ratio 1.1 % 05/22/19 11:19 Urine Color Yellow (Yellow) 05/22/19 10:07 Urine Turbidity Clear (Clear) 05/22/19 10:07 Urine pH 5.0 (5.0-7.0) 05/22/19 10:07 Ur Specific [place] 1.010 (1.003-1.030) 05/22/19 10:07 Urine Protein 30 mg/dl mg/dL (Negative) 05/22/19 10:07 Urine Glucose (UA) 500 mg/dL (Negative) 05/22/19 10:07 Urine Ketones 25 mg/dL (Negative) 05/22/19 10:07 Urine Blood Moderate (Negative) A 05/22/19 10:07 Urine Nitrite Negative (Negative) 05/22/19 10:07 Urine Bilirubin Negative (Negative) 05/22/19 10:07 Urine Urobilinogen < 2.0 mg/dL (<2.0) 05/22/19 10:07 Ur Leukocyte Esterase Negative (Negative) 05/22/19 10:07 Urine WBC (Auto) < 1.0 /HPF (0.0-6.0) 05/22/19 10:07 Urine RBC (Auto) 2.0 /HPF (0.0-6.0) 05/22/19 10:07 U Epithel Cells (Auto) < 1.0 /HPF (0-13.0) 05/22/19 10:07 Urine Mucus Few /HPF 05/22/19 10:07 Active Medications - Current Medications Current Medications: Generic Name Dose Route Start Last Admin Trade Name Freq PRN Reason Stop Dose Admin Dextrose 0 ml 05/22/19 20:41 D50w (25gm) Syringe IV Q30MIN PRN Hypoglycemia Enoxaparin Sodium 40 mg 05/22/19 22:00 05/22/19 21:10 Enoxaparin SUB-Q 40 mg QDAY@2200 RUTH Administration Famotidine 20 mg 05/22/19 22:00 05/23/19 10:53 Pepcid IV 20 mg BID RUTH Administration Insulin Human Regular 100 100 mls @ 1 mls/hr 05/22/19 10:00 05/23/19 14:36 units/ Sodium Chloride IV 3 units/hr TITR RUTH 3 mls/hr Titration Protocol 1 UNITS/HR Sodium Chloride 1,000 mls @ 125 mls/hr 05/23/19 09:00 Nacl 0.9% 1000 Ml IV DIRECT RUTH Potassium Chloride/Dextrose/Sod Cl 20 meq in 1,000 mls @ 125 mls/hr 05/23/19 12:00 D5w/0.45% Nacl/Kcl 20 Meq IV DIRECT RUTH Oxycodone/Acetaminophen 1 tab 05/22/19 20:36 Percocet 5/325 PO Q6H PRN Pain, Moderate (4-6) Promethazine HCl 25 mg 05/22/19 20:36 Phenergan MO Q6H PRN N/V IF NPO AND NO IV ACCESS Sodium Chloride 10 ml 05/22/19 22:00 05/23/19 10:53 Sodium Chloride Flush Syringe 10 Ml IV 10 ml BID RUTH Administration Sodium Chloride 10 ml 05/22/19 20:36 Sodium Chloride Flush Syringe 10 Ml IV PRN PRN LINE FLUSH Nutrition/Malnutrition Assess - Dietary Evaluation Nutrition/Malnutrition Findings: Nutrition Notes Start: 05/23/19 13:07 Freq: Status: Active Protocol: Document 05/23/19 13:07 CARROLL (Rec: 05/23/19 13:11 CARROLL [id number]) Nutrition Notes Current Diagnosis Diabetes Current Diet NPO Labs/Tests A1C: 13.3 Glu: 232 Subjective/Other Information Pt consulted for diet education. Pt asleep at time of visit, so RD provided education to pt's gf. Per pt gf, pt was unaware he had diabetes until this admission for DKA. 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 RD discussed consistent CHO diet and the importance of checking blood glucose levels regularly. Minimum of two criteria No physical signs of malnutrition #1 Nutrition Diagnosis Food and nutrition-related knowledge deficit Etiology No prior knowledge of consistent CHO diet As Evidenced by Signs and Symptoms new dx of DM, A1C of 13.3 Diagnosis Progress(for reassessment Resolved documentation) Nutrition Intervention Teaching Recipient Significant Other Learning Readiness Good Teaching Methods Discussion,Handout Response to Teaching Verbalize understanding Education Handouts Provided Carbohydrate Counting for Type 2 Diabetes, Using the Nutrition Label: Carbohydrates Barriers to Learning Motivation RD phone number provided Yes Patient aware of follow up options Yes Anticipated Discharge Needs: consistent CHO diet Revisit per MD consult or patient Sign Off request:
[2019-05-23 18:01] LABS: BUN/Creatinine Ratio 10; Blood Urea Nitrogen 10 mg/dL (9-20); Hemolysis Index 10
[2019-05-23] MEDS: ENOXAPARIN 40 MG/0.4 ML INJ SUB-Q SCH (21:36)
[2019-05-23] MEDS: oxyCODONE /ACETAMINOPHEN 5-325MG TAB PO PRN (23:09)
[2019-05-24 01:42] LABS: BUN/Creatinine Ratio 9; Blood Urea Nitrogen 9 mg/dL (9-20); Calcium 9.4 mg/dL (8.4-10.2); Hemolysis Index 22
[2019-05-24] MEDS ORDERED: POTASSIUM CHLORIDE ER 20 MEQ TAB PO ONE (02:23)
--- NOTE | 2019-05-24 02:26 | Event Note ---
Date: 05/24/19 Potassium 2.8; ordered po Potassium 40Meq. Monitor labs
[2019-05-24 05:43] LABS: BUN/Creatinine Ratio 9; Blood Urea Nitrogen 9 mg/dL (9-20); Calcium 9.2 mg/dL (8.4-10.2); Hemolysis Index 22
[2019-05-24 08:02] LABS: BUN/Creatinine Ratio 10; Blood Urea Nitrogen 9 mg/dL (9-20); Calcium 9.2 mg/dL (8.4-10.2); Hemolysis Index 5
[2019-05-24] MEDS ORDERED: SODIUM CHLORIDE 0.9% 1000 ML 1,000 ML IV ONE (08:06)
[2019-05-24] MEDS ORDERED: INSULIN GLARGINE 100 UNITS/ML SUB-Q SCH ×3 (08:37→22:00)
[2019-05-24] MEDS: oxyCODONE /ACETAMINOPHEN 5-325MG TAB PO PRN ×2 (09:23→21:37)
[2019-05-24] MEDS: FAMOTIDINE 20 MG/2 ML INJ IV SCH ×2 (09:23→21:35)
[2019-05-24] MEDS: INSULIN LISPRO 100 UNIT/ML SUB-Q SCH ×3 (11:43→22:32)
--- NOTE | 2019-05-24 12:23 | Progress Note ---
Assessment and Plan Assessment and plan: New diagnosis of DM with DKA -started on SSI and Lantus -off insulin drip -will need diabetic education Acute metabolic acidosis -cont IVF, will monitor level SIRS (systemic inflammatory response syndrome) -due to non-infectious cause -off abx Hyperkalemia/Hypokalemia -repleted, will monitor level DVT ppx: Lovenox Disposition: pt transferred out of ICU. For possible d/c tomorrow if BG remains stable History Interval history: Pt complained of sorethroat. He denies n/v or abd pain. Hospitalist Physical - Constitutional Vitals: Temp Pulse Resp BP Pulse Ox 98.7 F 104 H 18 127/91 100 05/24/19 12:00 05/24/19 12:00 05/24/19 12:00 05/24/19 12:00 05/24/19 08:30 General appearance: Present: severe distress, well-nourished - EENT Eyes: Present: PERRL, EOM intact ENT: hearing intact, clear oral mucosa - Neck Neck: Present: supple - Respiratory Respiratory effort: normal Respiratory: bilateral: CTA - Cardiovascular Rhythm: regular Heart Sounds: Present: S1 & S2 - Extremities Extremities: No edema - Abdominal General gastrointestinal: soft, non-tender, normal bowel sounds - Integumentary Integumentary: Present: clear, warm, dry - Psychiatric Psychiatric: appropriate mood/affect - Neurologic Neurologic: CNII-XII intact Results - Labs CBC & Chem 7: 05/23/19 10:55 05/24/19 06:53 Labs: Laboratory Last Values WBC 10.0 K/mm3 (4.5-11.0) 05/23/19 10:55 RBC 4.64 M/mm3 (3.65-5.03) 05/23/19 10:55 Hgb 14.7 gm/dl (11.8-15.2) 05/23/19 10:55 Hct 42.6 % (35.5-45.6) D 05/23/19 10:55 MCV 92 fl (84-94) 05/23/19 10:55 MCH 32 pg (28-32) 05/23/19 10:55 MCHC 35 % (32-34) H 05/23/19 10:55 RDW 13.5 % (13.2-15.2) 05/23/19 10:55 Plt Count 164 K/mm3 (140-440) 05/23/19 10:55 Lymph % (Auto) 11.8 % (13.4-35.0) L 05/23/19 10:55 [place] % (Auto) 10.2 % (0.0-7.3) H 05/23/19 10:55 Eos % (Auto) 0.3 % (0.0-4.3) 05/23/19 10:55 Baso % (Auto) 0.7 % (0.0-1.8) 05/23/19 10:55 Lymph # 1.2 K/mm3 (1.2-5.4) 05/23/19 10:55 [place] # 1.0 K/mm3 (0.0-0.8) H 05/23/19 10:55 Eos # 0.0 K/mm3 (0.0-0.4) 05/23/19 10:55 Baso # 0.1 K/mm3 (0.0-0.1) 05/23/19 10:55 Seg Neutrophils % 77.0 % (40.0-70.0) H 05/23/19 10:55 Seg Neutrophils # 7.7 K/mm3 (1.8-7.7) 05/23/19 10:55 VBG pH 6.909 (7.320-7.420) L* 05/22/19 09:23 Sodium 139 mmol/L (137-145) 05/24/19 06:53 Potassium 3.4 mmol/L (3.6-5.0) L 05/24/19 06:53 Chloride 110.2 mmol/L (98-107) H 05/24/19 06:53 Carbon Dioxide 15 mmol/L (22-30) L 05/24/19 06:53 Anion Gap 17 mmol/L 05/24/19 06:53 BUN 9 mg/dL (9-20) 05/24/19 06:53 Creatinine 0.9 mg/dL (0.8-1.5) 05/24/19 06:53 Estimated GFR > 60 ml/min 05/24/19 06:53 BUN/Creatinine Ratio 10 % 05/24/19 06:53 Glucose 155 mg/dL (75-100) H 05/24/19 06:53 POC Glucose 133 (70-105) H 05/24/19 06:31 Hemoglobin A1c 13.3 % (4-6) H 05/22/19 23:00 Lactic Acid 3.80 mmol/L (0.7-2.0) H* 05/22/19 Unknown Calcium 9.2 mg/dL (8.4-10.2) 05/24/19 06:53 Phosphorus 1.30 mg/dL (2.5-4.5) L D 05/22/19 23:00 Magnesium 2.30 mg/dL (1.7-2.3) 05/22/19 23:00 Total Bilirubin < 0.20 mg/dL (0.1-1.2) 05/22/19 11: AST 14 units/L (5-40) 05/22/19 11: ALT 14 units/L (7-56) 05/22/19 11:19 Alkaline Phosphatase 95 units/L (35-129) 05/22/19 11:19 Total Protein 7.6 g/dL (6.3-8.2) 05/22/19 11:19 Albumin 3.9 g/dL (3.9-5) 05/22/19 11:19 Albumin/Globulin Ratio 1.1 % 05/22/19 11:19 Urine Color Yellow (Yellow) 05/22/19 10:07 Urine Turbidity Clear (Clear) 05/22/19 10:07 Urine pH 5.0 (5.0-7.0) 05/22/19 10:07 Ur Specific [place] 1.010 (1.003-1.030) 05/22/19 10:07 Urine Protein 30 mg/dl mg/dL (Negative) 05/22/19 10:07 Urine Glucose (UA) 500 mg/dL (Negative) 05/22/19 10:07 Urine Ketones 25 mg/dL (Negative) 05/22/19 10:07 Urine Blood Moderate (Negative) A 05/22/19 10:07 Urine Nitrite Negative (Negative) 05/22/19 10:07 Urine Bilirubin Negative (Negative) 05/22/19 10:07 Urine Urobilinogen < 2.0 mg/dL (<2.0) 05/22/19 10:07 Ur Leukocyte Esterase Negative (Negative) 05/22/19 10:07 Urine WBC (Auto) < 1.0 /HPF (0.0-6.0) 05/22/19 10:07 Urine RBC (Auto) 2.0 /HPF (0.0-6.0) 05/22/19 10:07 U Epithel Cells (Auto) < 1.0 /HPF (0-13.0) 05/22/19 10:07 Urine Mucus Few /HPF 05/22/19 10:07 Active Medications - Current Medications Current Medications: Generic Name Dose Route Start Last Admin Trade Name Freq PRN Reason Stop Dose Admin Dextrose 0 ml 05/22/19 20:41 D50w (25gm) Syringe IV Q30MIN PRN Hypoglycemia Enoxaparin Sodium 40 mg 05/22/19 22:00 05/23/19 21:36 Enoxaparin SUB-Q 40 mg QDAY@2200 RUTH Administration Famotidine 20 mg 05/22/19 22:00 05/24/19 09:23 Pepcid IV 20 mg BID RUTH Administration Insulin Human Regular 100 100 mls @ 1 mls/hr 05/22/19 10:00 05/24/19 10:05 units/ Sodium Chloride IV 0 units/hr TITR RUTH 0 mls/hr Titration Protocol 1 UNITS/HR Sodium Chloride 1,000 mls @ 125 mls/hr 05/23/19 09:00 Nacl 0.9% 1000 Ml IV DIRECT RUTH Potassium Chloride/Dextrose/Sod Cl 20 meq in 1,000 mls @ 125 mls/hr 05/23/19 12:00 05/24/19 10:06 D5w/0.45% Nacl/Kcl 20 Meq IV Infused DIRECT RUTH Infusion Insulin Glargine 10 units 05/24/19 08:37 05/24/19 09:23 Lantus SUB-Q 10 units ONCE RUTH Administration Insulin Glargine 10 units 05/24/19 22:00 Lantus SUB-Q QHS RUTH Insulin Human Lispro 0 unit 05/24/19 11:30 05/24/19 11:43 Humalog SUB-Q 4 unit ACHS RUTH Administration Protocol Oxycodone/Acetaminophen 1 tab 05/22/19 20:36 05/24/19 09:23 Percocet 5/325 PO 1 tab Q6H PRN Administration Pain, Moderate (4-6) Promethazine HCl 25 mg 05/22/19 20:36 Phenergan ME Q6H PRN N/V IF NPO AND NO IV ACCESS Sodium Chloride 10 ml 05/22/19 22:00 05/24/19 09:23 Sodium Chloride Flush Syringe 10 Ml IV 10 ml BID RUTH Administration Sodium Chloride 10 ml 05/22/19 20:36 Sodium Chloride Flush Syringe 10 Ml IV PRN PRN LINE FLUSH Nutrition/Malnutrition Assess - Dietary Evaluation Nutrition/Malnutrition Findings: Nutrition Notes Start: 05/23/19 13:07 Freq: Status: Active Protocol: Document 05/23/19 13:07 CARROLL (Rec: 05/23/19 13:11 [id number]) Nutrition Notes Current Diagnosis Diabetes Current Diet NPO Labs/Tests A1C: 13.3 Glu: 232 Subjective/Other Information Pt consulted for diet education. Pt asleep at time of visit, so RD provided education to pt's gf. Per pt gf, pt was unaware he had diabetes until this admission for DKA. Pt had been experiencing extreme thirst, vomitting, and fatigue INSOLE PRESSER. RD discussed consistent CHO diet and the importance of checking blood glucose levels regularly. Minimum of two criteria No physical signs of malnutrition #1 Nutrition Diagnosis Food and nutrition-related knowledge deficit Etiology No prior knowledge of consistent CHO diet As Evidenced by Signs and Symptoms new dx of DM, A1C of 13.3 Diagnosis Progress(for reassessment Resolved documentation) Nutrition Intervention Teaching Recipient Significant Other Learning Readiness Good Teaching Methods Discussion,Handout Response to Teaching Verbalize understanding Education Handouts Provided Carbohydrate Counting for Type 2 Diabetes, Using the Nutrition Label: Carbohydrates Barriers to Learning Motivation RD phone number provided Yes Patient aware of follow up options Yes Anticipated Discharge Needs: consistent CHO diet Revisit per MD consult or patient Sign Off request:
[2019-05-24] MEDS: SODIUM CHLORIDE 0.9% 1000 ML 1,000 ML IV SCH (20:12)
[2019-05-24] MEDS: BENZOCAINE/MENTHOL LOZENGE MM PRN (21:35)
[2019-05-24] MEDS: ENOXAPARIN 40 MG/0.4 ML INJ SUB-Q SCH (21:35)
[2019-05-25 05:51] LABS: BUN/Creatinine Ratio 14; Blood Urea Nitrogen 11 mg/dL (9-20); Calcium 8.8 mg/dL (8.4-10.2); Hemolysis Index 6
[2019-05-25] MEDS: SODIUM CHLORIDE 0.9% 1000 ML 1,000 ML IV SCH (06:30)
[2019-05-25] MEDS: INSULIN LISPRO 100 UNIT/ML SUB-Q SCH ×5 (09:10→21:30)
[2019-05-25] MEDS: FAMOTIDINE 20 MG/2 ML INJ IV SCH ×2 (09:11→21:24)
[2019-05-25] MEDS: SODIUM BICARBONATE 650 MG TAB PO SCH ×3 (09:11→21:24)
[2019-05-25] MEDS ORDERED: POTASSIUM CHLORIDE ER 20 MEQ TAB PO ONE (09:30)
[2019-05-25] MEDS ORDERED: INSULIN GLARGINE 100 UNITS/ML SUB-Q SCH ×2 (10:00→15:10)
[2019-05-25] MEDS ORDERED: INSULIN LISPRO 100 UNIT/ML SUB-Q ONE (15:06)
--- NOTE | 2019-05-25 15:16 | Progress Note ---
Assessment and Plan Assessment and plan: New diagnosis of DM with DKA -off insulin drip -BG trending up, insulin regimen adjusted, will monitor -pt will need diabetic education at d/c Acute metabolic acidosis -on IVF and oral sodium bicarbonate supplements -will monitor level SIRS (systemic inflammatory response syndrome) -due to non-infectious cause -off abx Hyperkalemia -resolved Hypokalemia -on repletion, will monitor level DVT ppx: Lovenox Disposition: due to the current high glucose level and pt being a new diabetic, will hold d/c today and plan for d/c tomorow if BG stabilizes History Interval history: Pt has no new complaints. He denies n/v or abd pain. Hospitalist Physical - Constitutional Vitals: Temp Pulse Resp BP Pulse Ox 99.4 F 105 H 20 120/69 97 05/25/19 11:20 05/25/19 11:20 05/25/19 11:20 05/25/19 11:20 05/25/19 11:20 General appearance: Present: no acute distress, well-nourished - EENT Eyes: Present: PERRL, EOM intact ENT: hearing intact, clear oral mucosa - Neck Neck: Present: supple - Respiratory Respiratory effort: normal Respiratory: bilateral: CTA - Cardiovascular Rhythm: regular Heart Sounds: Present: S1 & S2 - Extremities Extremities: No edema - Abdominal General gastrointestinal: soft, non-tender, normal bowel sounds - Integumentary Integumentary: Present: warm, dry - Psychiatric Psychiatric: appropriate mood/affect - Neurologic Neurologic: CNII-XII intact Results - Labs CBC & Chem 7: 05/23/19 10:55 05/25/19 04:52 Labs: Laboratory Last Values WBC 10.0 K/mm3 (4.5-11.0) 05/23/19 10:55 RBC 4.64 M/mm3 (3.65-5.03) 05/23/19 10:55 Hgb 14.7 gm/dl (11.8-15.2) 05/23/19 10:55 Hct 42.6 % (35.5-45.6) D 05/23/19 10:55 MCV 92 fl (84-94) 05/23/19 10:55 MCH 32 pg (28-32) 05/23/19 10:55 MCHC 35 % (32-34) H 05/23/19 10:55 RDW 13.5 % (13.2-15.2) 05/23/19 10:55 Plt Count 164 K/mm3 (140-440) 05/23/19 10:55 Lymph % (Auto) 11.8 % (13.4-35.0) L 05/23/19 10:55 [place] % (Auto) 10.2 % (0.0-7.3) H 05/23/19 10:55 Eos % (Auto) 0.3 % (0.0-4.3) 05/23/19 10:55 Baso % (Auto) 0.7 % (0.0-1.8) 05/23/19 10:55 Lymph # 1.2 K/mm3 (1.2-5.4) 05/23/19 10:55 [place] # 1.0 K/mm3 (0.0-0.8) H 05/23/19 10:55 Eos # 0.0 K/mm3 (0.0-0.4) 05/23/19 10:55 Baso # 0.1 K/mm3 (0.0-0.1) 05/23/19 10:55 Seg Neutrophils % 77.0 % (40.0-70.0) H 05/23/19 10:55 Seg Neutrophils # 7.7 K/mm3 (1.8-7.7) 05/23/19 10:55 VBG pH 6.909 (7.320-7.420) L* 05/22/19 09:23 Sodium 142 mmol/L (137-145) 05/25/19 04:52 Potassium 3.2 mmol/L (3.6-5.0) L 05/25/19 04:52 Chloride 110.2 mmol/L (98-107) H 05/25/19 04:52 Carbon Dioxide 16 mmol/L (22-30) L 05/25/19 04:52 Anion Gap 19 mmol/L 05/25/19 04:52 BUN 11 mg/dL (9-20) 05/25/19 04:52 Creatinine 0.8 mg/dL (0.8-1.5) 05/25/19 04:52 Estimated GFR > 60 ml/min 05/25/19 04:52 BUN/Creatinine Ratio 14 % 05/25/19 04:52 Glucose 320 mg/dL (75-100) H 05/25/19 04:52 POC Glucose 360 (70-105) H 05/25/19 14:26 Hemoglobin A1c 13.3 % (4-6) H 05/22/19 23:00 Lactic Acid 3.80 mmol/L (0.7-2.0) H* 05/22/19 Unknown Calcium 8.8 mg/dL (8.4-10.2) 05/25/19 04:52 Phosphorus 1.30 mg/dL (2.5-4.5) L D 05/22/19 23:00 Magnesium 2.20 mg/dL (1.7-2.3) 05/25/19 04:52 Total Bilirubin < 0.20 mg/dL (0.1-1.2) 05/22/19 11:19 AST 14 units/L (5-40) 05/22/19 11:19 ALT 14 units/L (7-56) 05/22/19 11:19 Alkaline Phosphatase 95 units/L (35-129) 05/22/19 11:19 Total Protein 7.6 g/dL (6.3-8.2) 05/22/19 11:19 Albumin 3.9 g/dL (3.9-5) 05/22/19 11:19 Albumin/Globulin Ratio 1.1 % 05/22/19 11:19 Urine Color Yellow (Yellow) 05/22/19 10:07 Urine Turbidity Clear (Clear) 05/22/19 10:07 Urine pH 5.0 (5.0-7.0) 05/22/19 10:07 Ur Specific [place] 1.010 (1.003-1.030) 05/22/19 10:07 Urine Protein 30 mg/dl mg/dL (Negative) 05/22/19 10:07 Urine Glucose (UA) 500 mg/dL (Negative) 05/22/19 10:07 Urine Ketones 25 mg/dL (Negative) 05/22/19 10:07 Urine Blood Moderate (Negative) A 05/22/19 10:07 Urine Nitrite Negative (Negative) 05/22/19 10:07 Urine Bilirubin Negative (Negative) 05/22/19 10:07 Urine Urobilinogen < 2.0 mg/dL (<2.0) 05/22/19 10:07 Ur Leukocyte Esterase Negative (Negative) 05/22/19 10:07 Urine WBC (Auto) < 1.0 /HPF (0.0-6.0) 05/22/19 10:07 Urine RBC (Auto) 2.0 /HPF (0.0-6.0) 05/22/19 10:07 U Epithel Cells (Auto) < 1.0 /HPF (0-13.0) 05/22/19 10:07 Urine Mucus Few /HPF 05/22/19 10:07 Active Medications - Current Medications Current Medications: Generic Name Dose Route Start Last Admin Trade Name Freq PRN Reason Stop Dose Admin Benzocaine/Menthol 1 each 05/24/19 12:30 05/24/19 21:35 Cepacol X Strength MM 1 each Q2HR PRN Administration Sore Throat Dextrose 0 ml 05/22/19 20:41 D50w (25gm) Syringe IV Q30MIN PRN Hypoglycemia Enoxaparin Sodium 40 mg 05/22/19 22:00 05/24/19 21:35 Enoxaparin SUB-Q 40 mg QDAY@2200 RUTH Administration Famotidine 20 mg 05/22/19 22:00 05/25/19 09:11 Pepcid IV 20 mg BID RUTH Administration Insulin Glargine 15 units 05/25/19 10:00 05/25/19 10:48 Lantus SUB-Q 15 units BID RUTH Administration Insulin Human Lispro 0 unit 05/24/19 11:30 05/25/19 13:20 Humalog SUB-Q 6 unit ACHS RUTH Administration Protocol Insulin Human Lispro 10 unit 05/25/19 15:06 Humalog SUB-Q 05/25/19 15:07 ONCE ONE Oxycodone/Acetaminophen 1 tab 05/22/19 20:36 05/24/19 21:37 Percocet 5/325 PO 1 tab Q6H PRN Administration Pain, Moderate (4-6) Promethazine HCl 25 mg 05/22/19 20:36 Phenergan MS Q6H PRN N/V IF NPO AND NO IV ACCESS Sodium Bicarbonate 650 mg 05/25/19 08:33 05/25/19 09:11 Sodium Bicarbonate PO 650 mg TID RUTH Administration Sodium Chloride 10 ml 05/22/19 22:00 05/25/19 09:12 Sodium Chloride Flush Syringe 10 Ml IV 10 ml BID RUTH Administration Sodium Chloride 10 ml 05/22/19 20:36 Sodium Chloride Flush Syringe 10 Ml IV PRN PRN LINE FLUSH Nutrition/Malnutrition Assess - Dietary Evaluation Nutrition/Malnutrition Findings: Nutrition Notes Start: 05/23/19 13:07 Freq: Status: Active Protocol: Document 05/25/19 13:26 RM (Rec: 05/25/19 13:39 RM [id number]) Nutrition Notes Initial or Follow up Assessment Current Diagnosis Diabetes Current Diet Consistent CHO w/Glucerna vanilla Labs/Tests Reviewed Pertinent Medications Reviewed Height 5 ft 5 in Weight 94.8 kg [place] Body Weight (kg) 61.81 BMI 34.7 Subjective/Other Information Nurse stopped editorial writer in hallway and stated that pt has questions about DM diet education. Pt stated that his appetite is okay and that he eats 1/3 of his meals. Stated that he is also drinking the Glucerna. Pt stated that his girlfriend had not spoken with him about the education she received yet . Costume Technician reviewed DM diet education and gave handout. Percent of energy/protein needs met: 63%/81% Burn Absent Trauma Absent Minimum of two criteria No physical signs of malnutrition #2 Nutrition Diagnosis Inadequate oral intake Etiology decreased appetite As Evidenced by Signs and Symptoms pt statement that he eats 1/3 of his meals #1 Nutrition Diagnosis Food and nutrition-related knowledge deficit As Evidenced by Signs and Symptoms pt received DM diet education Diagnosis Progress(for reassessment Resolved documentation) Is patient on ventilator? No Is Patient Ambulatory and/or Out of Bed Yes REE-([facility]-ambulatory/OOB) [ 2307.344 NUTR.MSJOOB] Kcal/Kg value to use for calculation 19 Approximate Energy Requirements Using 1801 kcal/Kg Calculation Used for Recommendations Kcal/kg Additional Notes Protein Needs: 62-78g (0.8-1g/ kg 78kg adjBW) Fluid Needs: 1 ml/kcal Nutrition Intervention Change Diet Order: Continue current Add Supplement/Snack (indicate name/kcal Glucerna Vanilla TID /protein ) Provides kCal: 660 Provides Protein (gm) 30 Teaching Recipient Patient Learning Readiness Good Teaching Methods Discussion,Handout Response to Teaching Verbalize understanding Education Handouts Provided Carbohydrate Counting for People with Diabetes Barriers to Learning No Barriers RD phone number provided Yes Patient aware of follow up options Yes Goal #1 Meet at least 75% of calorie and protein needs via PO and ONS intakes Goal #2 Utilize carbohydrate counting Anticipated Discharge Needs: consistent CHO diet Follow-Up By: 05/28/19 Additional Comments Follow for PO and ONS intakes
[2019-05-25] MEDS: NACL 0.9%/KCL 20 MEQ 20 MEQ/1,000 ML BAG IV SCH (15:31)
[2019-05-25] MEDS: BENZOCAINE/MENTHOL LOZENGE MM PRN (17:26)
[2019-05-25] MEDS: ENOXAPARIN 40 MG/0.4 ML INJ SUB-Q SCH (21:24)
[2019-05-26] MEDS: NACL 0.9%/KCL 20 MEQ 20 MEQ/1,000 ML BAG IV SCH ×2 (05:53→15:54)
[2019-05-26] MEDS: INSULIN LISPRO 100 UNIT/ML SUB-Q SCH ×4 (09:02→17:43)
[2019-05-26] MEDS: FAMOTIDINE 20 MG/2 ML INJ IV SCH (09:03)
[2019-05-26] MEDS: SODIUM BICARBONATE 650 MG TAB PO SCH ×3 (09:03→22:26)
[2019-05-26 09:21] LABS: BUN/Creatinine Ratio 16; Blood Urea Nitrogen 11 mg/dL (9-20); Calcium 8.6 mg/dL (8.4-10.2); Hemolysis Index 7
[2019-05-26] MEDS ORDERED: INSULIN NPH/REGULAR 70/30 INJ SUB-Q SCH (09:30)
[2019-05-26] MEDS ORDERED: POTASSIUM CHLORIDE ER 20 MEQ TAB PO ONE (13:00)
[2019-05-26] MEDS ORDERED: INSULIN NPH/REGULAR 70/30 INJ SUB-Q ONE (13:00)
--- NOTE | 2019-05-26 16:41 | Progress Note ---
Assessment and Plan Assessment and plan: 44-year-old Palestinian male who is presenting with difficulty breathing. Patient had URI for one week for which he is getting Amoxicillin. Since 2 days patient has been breathing heavily. Also confused for one day. Increased urination and increased thirst present. Nausea and vomiting for one day. No diarrhea.Multiple episodes of vomiting since yesterday. No fever. New diagnosis of DM with DKA -off insulin drip -BG trending up, insulin regimen adjusted, will monitor -pt will need diabetic education at d/c - changed to Novolin 70/30 to help with discharge due to affordability Acute metabolic acidosis -on IVF and oral sodium bicarbonate supplements -will monitor level SIRS (systemic inflammatory response syndrome) -due to non-infectious cause -off abx Hyperkalemia -resolved Hypokalemia -on repletion, will monitor level DVT ppx: Lovenox Disposition: due to the current high glucose level and pt being a new diabetic, will hold d/c today and plan for d/c tomorow if BG stabilizes History Interval history: Patient seen and examined, no acute distress. reports that he does not have insurance, otherwise clinically improving. Hospitalist Physical - Physical exam Narrative exam: General appearance: Present: no acute distress, well-nourished - EENT Eyes: [id number]: PERRL, EOM intact ENT: hearing intact, clear oral mucosa - Neck Neck: Present: supple - Respiratory Respiratory effort: normal Respiratory: bilateral: CTA - Cardiovascular Rhythm: regular Heart Sounds: Present: S1 & S2 - Extremities Extremities: No edema - Abdominal General gastrointestinal: soft, non-tender, normal bowel sounds, central obesity - Integumentary Integumentary: Present: warm, dry - Psychiatric Psychiatric: appropriate mood/affect - Neurologic Neurologic: CNII-XII intact Results - Constitutional Vitals: Temp Pulse Resp BP Pulse Ox 98.8 F 88 20 109/70 100 05/26/19 12:02 05/26/19 12:02 05/26/19 12:02 05/26/19 12:01 05/26/19 12:02 General appearance: Present: no acute distress, well-nourished Results - Labs CBC & Chem 7: 05/23/19 10:55 05/26/19 08:47 Labs: Laboratory Last Values WBC 10.0 K/mm3 (4.5-11.0) 10/26/19 10:55 RBC 4.64 M/mm3 (3.65-5.03) 05/23/19 10:55 Hgb 14.7 gm/dl (11.8-15.2) 05/23/19 10:55 Hct 42.6 % (35.5-45.6) D 05/23/19 10:55 MCV 92 fl (84-94) 05/23/19 10:55 MCH 32 pg (28-32) 05/23/19 10:55 MCHC 35 % (32-34) H 05/23/19 10:55 RDW 13.5 % (13.2-15.2) 05/23/19 10:55 Plt Count 164 K/mm3 (140-440) 05/23/19 10:55 Lymph % (Auto) 11.8 % (13.4-35.0) L 05/23/19 10:55 [place] % (Auto) 10.2 % (0.0-7.3) H 05/23/19 10:55 Eos % (Auto) 0.3 % (0.0-4.3) 05/23/19 10:55 Baso % (Auto) 0.7 % (0.0-1.8) 05/23/19 10:55 Lymph # 1.2 K/mm3 (1.2-5.4) 05/23/19 10:55 [place] # 1.0 K/mm3 (0.0-0.8) H 05/23/19 10:55 Eos # 0.0 K/mm3 (0.0-0.4) 05/23/19 10:55 Baso # 0.1 K/mm3 (0.0-0.1) 05/23/19 10:55 Seg Neutrophils % 77.0 % (40.0-70.0) H 05/23/19 10:55 Seg Neutrophils # 7.7 K/mm3 (1.8-7.7) 05/23/19 10:55 VBG pH 6.909 (7.320-7.420) L* 05/22/19 09:23 Sodium 143 mmol/L (137-145) 05/26/19 08:47 Potassium 3.5 mmol/L (3.6-5.0) L 05/26/19 08:47 Chloride 107.7 mmol/L (98-107) H 05/26/19 08:47 Carbon Dioxide 22 mmol/L (22-30) 05/26/19 08:47 Anion Gap 17 mmol/L 05/26/19 08:47 BUN 11 mg/dL (9-20) 05/26/19 08:47 Creatinine 0.7 mg/dL (0.8-1.5) L 05/26/19 08:47 Estimated GFR > 60 ml/min 05/26/19 08:47 BUN/Creatinine Ratio 16 % 05/26/19 08:47 Glucose 337 mg/dL (75-100) H 05/26/19 08:47 POC Glucose 391 (70-105) H 05/26/19 12:10 Hemoglobin A1c 13.3 % (4-6) H 05/22/19 23:00 Lactic Acid 3.80 mmol/L (0.7-2.0) H* 05/22/19 Unknown Calcium 8.6 mg/dL (8.4-10.2) 05/26/19 08:47 Phosphorus 1.30 mg/dL (2.5-4.5) L D 05/22/19 23:00 Magnesium 2.20 mg/dL (1.7-2.3) 05/25/19 04:52 Total Bilirubin < 0.20 mg/dL (0.1-1.2) 05/22/19 11:19 AST 14 units/L (5-40) 05/22/19 11:19 ALT 14 units/L (7-56) 05/22/19 11:19 Alkaline Phosphatase 95 units/L (35-129) 05/22/19 11:19 Total Protein 7.6 g/dL (6.3-8.2) 05/22/19 11:19 Albumin 3.9 g/dL (3.9-5) 05/22/19 11:19 Albumin/Globulin Ratio 1.1 % 05/22/19 11:19 Urine Color Yellow (Yellow) 05/22/19 10:07 Urine Turbidity Clear (Clear) 05/22/19 10:07 Urine pH 5.0 (5.0-7.0) 05/22/19 10:07 Ur Specific [employer] 1.010 (1.003-1.030) 05/22/19 10:07 Urine Protein 30 mg/dl mg/dL (Negative) 05/22/19 10:07 Urine Glucose (UA) 500 mg/dL (Negative) 05/22/19 10:07 Urine Ketones 25 mg/dL (Negative) 05/22/19 10:07 Urine Blood Moderate (Negative) A 05/22/19 10:07 Urine Nitrite Negative (Negative) 05/22/19 10:07 Urine Bilirubin Negative (Negative) 05/22/19 10:07 Urine Urobilinogen < 2.0 mg/dL (<2.0) 05/22/19 10:07 Ur Leukocyte Esterase Negative (Negative) 05/22/19 10:07 Urine WBC (Auto) < 1.0 /HPF (0.0-6.0) 05/22/19 10:07 Urine RBC (Auto) 2.0 /HPF (0.0-6.0) 05/22/19 10:07 U Epithel Cells (Auto) < 1.0 /HPF (0-13.0) 05/22/19 10:07 Urine Mucus Few /HPF 05/22/19 10:07 Active Medications - Current Medications Current Medications: Generic Name Dose Route Start Last Admin Trade Name Freq PRN Reason Stop Dose Admin Benzocaine/Menthol 1 each 05/24/19 12:30 05/25/19 17:26 Cepacol X Strength MM 1 each Q2HR PRN Administration Sore Throat Dextrose 0 ml 05/22/19 20:41 D50w (25gm) Syringe IV Q30MIN PRN Hypoglycemia Enoxaparin Sodium 40 mg 05/22/19 22:00 05/25/19 21:24 Enoxaparin SUB-Q 40 mg QDAY@2200 RUTH Administration Famotidine 20 mg 05/26/19 22:00 Pepcid PO BID RUTH Potassium Chloride/Sodium Chloride 20 meq in 1,000 mls @ 100 mls/hr 05/25/19 16:00 05/26/19 15:54 Ns/Kcl 20meq IV 100 mls/hr DIRECT RUTH Administration Insulin Human Isoph/Insulin Regular 60 unit 05/26/19 17:00 Humulin 70/30 SUB-Q BIDDIAB RUTH Insulin Human Lispro 0 unit 05/24/19 11:30 05/26/19 12:45 Humalog SUB-Q 8 unit ACHS RUTH Administration Protocol Oxycodone/Acetaminophen 1 tab 05/22/19 20:36 05/24/19 21:37 Percocet 5/325 PO 1 tab Q6H PRN Administration Pain, Moderate (4-6) Promethazine HCl 25 mg 05/22/19 20:36 Phenergan NM Q6H PRN N/V IF NPO AND NO IV ACCESS Sodium Bicarbonate 650 mg 05/25/19 08:33 05/26/19 14:57 Sodium Bicarbonate PO 650 mg TID RUTH Administration Sodium Chloride 10 ml 05/22/19 22:00 05/26/19 09:03 Sodium Chloride Flush Syringe 10 Ml IV 10 ml BID RUTH Administration Sodium Chloride 10 ml 05/22/19 20:36 Sodium Chloride Flush Syringe 10 Ml IV PRN PRN LINE FLUSH Nutrition/Malnutrition Assess - Dietary Evaluation Nutrition/Malnutrition Findings: Nutrition Notes Start: 05/23/19 13:07 Freq: Status: Active Protocol: Document 05/25/19 13:26 RM (Rec: 05/25/19 13:39 RM [id number]) Nutrition Notes Initial or Follow up Assessment Current Diagnosis Diabetes Current Diet Consistent CHO w/Glucerna vanilla Labs/Tests Reviewed Pertinent Medications Reviewed Height 5 ft 5 in Weight 94.8 kg [place] Body Weight (kg) 61.81 BMI 34.7 Subjective/Other Information Nurse stopped financial writer in [facility] and stated that pt has questions about DM diet education. Pt stated that his appetite is okay and that he eats 1/3 of his meals. Stated that he is also drinking the Glucerna. Pt stated that his girlfriend had not spoken with him about the education she received yet . Quality Assurance Nurse reviewed DM diet education and gave handout. Percent of energy/protein needs met: 63%/81% Burn Absent Trauma Absent Minimum of two criteria No physical signs of malnutrition #2 Nutrition Diagnosis Inadequate oral intake Etiology decreased appetite As Evidenced by Signs and Symptoms pt statement that he eats 1/3 of his meals #1 Nutrition Diagnosis Food and nutrition-related knowledge deficit As Evidenced by Signs and Symptoms pt received DM diet education Diagnosis Progress(for reassessment Resolved documentation) Is patient on ventilator? No Is Patient Ambulatory and/or Out of Bed Yes REE-([place]. Jeor-ambulatory/OOB) [ 3326.723 NUTR.[id number]] Kcal/Kg value to use for calculation 19 Approximate Energy Requirements Using 1801 kcal/Kg Calculation Used for Recommendations Kcal/kg Additional Notes Protein Needs: 62-78g (0.8-1g/ kg 78kg adjBW) Fluid Needs: 1 ml/kcal Nutrition Intervention Change Diet Order: Continue current Add Supplement/Snack (indicate name/kcal Glucerna Vanilla TID /protein ) Provides kCal: 660 Provides Protein (gm) 30 Teaching Recipient Patient Learning Readiness Good Teaching Methods Discussion,Handout Response to Teaching Verbalize understanding Education Handouts Provided Carbohydrate Counting for People with Diabetes Barriers to Learning No Barriers RD phone number provided Yes Patient aware of follow up options Yes Goal #1 Meet at least 75% of calorie and protein needs via PO and ONS intakes Goal #2 Utilize carbohydrate counting Anticipated Discharge Needs: consistent CHO diet Follow-Up By: 05/28/19 Additional Comments Follow for PO and ONS intakes
[2019-05-26] MEDS: INSULIN NPH/REGULAR 70/30 INJ SUB-Q SCH (17:43)
[2019-05-26] MEDS: FAMOTIDINE 20 MG TAB PO SCH (22:26)
[2019-05-26] MEDS: ENOXAPARIN 40 MG/0.4 ML INJ SUB-Q SCH (22:26)
[2019-05-27] MEDS: INSULIN LISPRO 100 UNIT/ML SUB-Q SCH ×2 (00:58→08:21)
[2019-05-27 06:20] LABS: BUN/Creatinine Ratio 13; Blood Urea Nitrogen 8 mg/dL (9-20); Calcium 8.5 mg/dL (8.4-10.2); Hemolysis Index 7
[2019-05-27] MEDS: INSULIN NPH/REGULAR 70/30 INJ SUB-Q SCH (08:30)
[2019-05-27] MEDS: SODIUM BICARBONATE 650 MG TAB PO SCH ×2 (08:30→13:39)
[2019-05-27] MEDS ORDERED: INSULIN NPH/REGULAR 70/30 INJ SUB-Q SCH (09:30)
[2019-05-27] MEDS: FAMOTIDINE 20 MG TAB PO SCH (09:51)
[2019-05-27 12:15] VITALS: BP 113/78
--- NOTE | 2019-05-27 12:28 | Discharge Summary ---
Providers - Providers Date of Admission: 05/22/19 11:26 Attending physician: ETIENNE OCASIO MD 05/22/19 13:44 Consult to PICC Line RN [CONS] Stat Reason For Exam: Difficult access Type Line:: Midline 05/22/19 20:36 Consult to Dietitian/Nutrition [CONS] Routine Physician Instructions: Reason For Exam: Reason for Consult: Diet education 05/22/19 20:41 Consult to Dietitian/Nutrition [CONS] Routine Physician Instructions: Reason For Exam: DKA Reason for Consult: Nutrition Recommendations Reason for Consult: Diet education Primary care physician: [employer] Hospitalization Reason for admission: dka Condition: Serious Hospital course: 44-year-old [place] male who is presenting with difficulty breathing. Patient had URI for one week for which he is getting Amoxicillin. Since 2 days patient has been breathing heavily. Also confused for one day. Increased urination and increased thirst present. Nausea and vomiting for one day. No diarrhea.Multiple episodes of vomiting since yesterday. No fever. New diagnosis of DM with DKA -off insulin drip -BG trending up, insulin regimen adjusted, will monitor -pt will need diabetic education at d/c - changed to Novolin 70/30 to help with discharge due to affordability and tolerated, titrated dose and recommended patient keep a daily diary and present to PCP. Also discussed PCP options in the community Acute metabolic acidosis -on IVF and oral sodium bicarbonate supplements SIRS (systemic inflammatory response syndrome) -due to non-infectious cause -off abx Hyperkalemia -resolved Hypokalemia - repletED, Disposition: DC-01 TO HOME OR SELFCARE Time spent for discharge: 35 mins Core Measure Documentation - Palliative Care Palliative Care/ Comfort Measures: Not Applicable - Core Measures Any of the following diagnoses?: none Exam - Physical Exam Narrative exam: General appearance: Present: no acute distress, well-nourished - EENT Eyes: [id number]: PERRL, EOM intact ENT: hearing intact, clear oral mucosa - Neck Neck: Present: supple - Respiratory Respiratory effort: normal Respiratory: bilateral: CTA - Cardiovascular Rhythm: regular Heart Sounds: Present: S1 & S2 - Extremities Extremities: No edema - Abdominal General gastrointestinal: soft, non-tender, normal bowel sounds, central obesity - Integumentary Integumentary: Present: warm, dry - Psychiatric Psychiatric: appropriate mood/affect - Neurologic Neurologic: CNII-XII intact Results - Constitutional Vitals: Temp Pulse Resp BP Pulse Ox 98.3 F 89 20 113/78 98 05/27/19 11:43 05/27/19 11:43 05/27/19 11:43 05/27/19 11:43 05/27/19 11:43 Plan Activity: advance as tolerated, fall precautions Diet: diabetic Special Instructions: record daily BP diary, record blood sugar diary Additional Instructions: repeat bmp in 2-3 days with PCP Care Plan Goals: Better blood glucose control Plan of Treatment: insulin therapy Health Concerns: diabetic related complications Assessment: daily blood glucose yearly eye exam yearly foot exam Follow up with: PRIMARY CARE, [Primary Care Provider] - 3-5 Days Prescriptions: Potassium Chloride [K-Dur] 20 meq PO QDAY #20 tablet Insulin NPH/Regular [NovoLIN 70/30] 50 unit SUB-Q BIDDIAB 30 Days #100 units Insulin NPH Human Isophane [Novolin N] 0 unit SQ ACHS #1 vial Other Discharge Orders: Glucometer (Amb) Location: None Selected Glucometer supplies[Amb] Location: None Selected
[2019-05-27] MEDS ORDERED: POTASSIUM CHLORIDE ER 20 MEQ TAB PO ONE (13:00)
== END 2019-05-27 16:30 | disposition home or self-care (01) | DRG 638 ==
LOC: ED 08:25 → CC1 11:26 → 3A 05-24 12:22
PROVIDERS: ADMIT Internal Medicine; ATTEND Internal Medicine
PROC: 05HY33Z Insertion of Infusion Device into Upper Vein, Percutaneous Approach (ICD-10-PCS; principal; 2019-05-23)
PROC: B544ZZA Ultrasonography of Left Jugular Veins, Guidance (ICD-10-PCS; 2019-05-23)
DX: E11.10 Type 2 diabetes mellitus with ketoacidosis without coma (principal); R65.10 Systemic inflammatory response syndrome (SIRS) of non-infectious origin without acute organ dysfunction; E87.1 Hypo-osmolality and hyponatremia; E87.5 Hyperkalemia; E87.6 Hypokalemia; J06.9 Acute upper respiratory infection, unspecified; F17.200 Nicotine dependence, unspecified, uncomplicated; Z72.89 Other problems related to lifestyle; Z82.49 Family history of ischemic heart disease and other diseases of the circulatory system
CPT/HCPCS: 36415; 71045; 71250; 74176; 80048; 80053; 81001; 82140; 82805; 82947; 82962; 83036; 83735; 84100; 85025; 87040; 87086; 96365; 96375; G0378; J0456; J0692; J0696; J1170; J1650; J1815; J1885; J2270; J2405; J3480; J7030; J7050